=== PATIENT | female | born 1965 | race Caucasian/White ===

== ENCOUNTER 2023-05-23 15:01 | Outpatient (OUT) | payer BC, SELFPAY ==
--- NOTE | 2023-05-23 15:04 | CT_ITS ---
The [address] [address] Patient Name: CHIN MILIAN MRN: [id number] date: 1965 Sex: F Assigned Patient Location: CT Current Patient Location: CT Accession/Order Number: [id number] Exam Date: 05/23/2023 15:14 Report Date: 05/26/2023 06:50 At the request of: SAMIR ALVAREZ Procedure: CT lung screening low-dose EXAM: CT lung screening low-dose HISTORY: Nicotine Dependence F17.210 ; technologist notes state current smoker. COMPARISON: None. TECHNIQUE: Routine low-dose CT lung screen without intravenous contrast. FINDINGS: Cardiovascular: Small amount of fat extending into the interatrial septum. Mild multivessel coronary artery calcifications. Small atheromatous calcification at the aortic valve. Small atheromatous calcification proximal abdominal aorta. A few atheromatous calcifications scattered along the splenic artery. Lungs: Paraseptal and centrilobular emphysema. Moderate irregular biapical pleural parenchymal scarring. Nodules: There are no suspicious masses or nodules. Lymphadenopathy: there are no pathologically enlarged axillary, mediastinal or hilar lymph nodes. Other: The trachea, esophagus and thyroid gland are unremarkable. Upper abdomen: Atheromatous calcification. Osseous: Mild discogenic degenerative changes at several levels along the mid thoracic spine. CT/CT lung screening low-dose IMPRESSION: Paraseptal and centrilobular emphysema with moderate irregular biapical pleural parenchymal scarring. There are no suspicious masses or nodules within the chest or pathologically enlarged lymph nodes. Mild atherosclerotic disease as described in the body the report. Lung rads score 1. A low-dose CT lung screen examination in 12 months is recommended. Electronically authenticated by: LINO DOW Date: 05/26/2023 06:50
== END 2023-05-23 15:02 | disposition home or self-care (01) ==
LOC: CT 15:01
PROVIDERS: PCP Family Medicine; Visit Provider Family Medicine
DX: Z00.00 Encounter for general adult medical examination without abnormal findings (principal); F17.210 Nicotine dependence, cigarettes, uncomplicated
CPT/HCPCS: 71271

== ENCOUNTER 2023-09-08 09:07 | Outpatient (OUT) | payer BC, SELFPAY ==
[2023-09-08 09:41] LABS: Basophils Absolute Auto 0.1 10^3/uL (0.0-0.1); Basophils Percent Auto 0.5 % (0.2-2.0); Eosinophils Absolute Auto 0.1 10^3/uL (0.0-0.7); Eosinophils Percent Auto 0.7 % (0.9-7.0); Hematocrit 39.2 % (36.0-48.0); Hemoglobin 13.2 g/dL (12.0-16.0); Immature Granulocytes Abs Auto 0.03 10^3/uL (0.00-0.03); Immature Granulocytes Pct Auto 0.3 % (0.0-0.5); Lymphocytes Absolute Auto 1.7 10^3/uL (1.2-3.8); Lymphocytes Percent Auto 16.8 % (20.5-60.0); Mean Corpuscular HGB Conc 33.7 g/dL (29.9-35.2); Mean Corpuscular Hemoglobin 30.9 pg (26.7-34.0); Mean Corpuscular Volume 91.8 fL (81.0-99.0); Mean Platelet Volume 8.5 fL (9.5-13.5); Monocytes Absolute Auto 1.1 10^3/uL (0.3-0.8); Monocytes Percent Auto 10.4 % (1.7-12.0); Neutrophils Absolute Auto 7.2 10^3/uL (1.4-6.5); Neutrophils Percent Auto 71.3 % (43.0-75.0); Platelet Count 388 10^3/uL (150-450); Red Blood Count 4.27 10^6/uL (4.20-5.40); Red Cell Distribution Width 13.7 % (11.0-15.0); White Blood Count 10.2 10^3/uL (4.0-11.0)
[2023-09-08 14:37] LABS: Estimated Average Glucose 111 mg/dL; Glycohemoglobin A1C 5.5 % (4.5-6.2)
[2023-09-08 14:41] LABS: Alanine Aminotransferase 24 U/L (14-59); Albumin Globulin Ratio 0.9; Albumin Level 3.6 g/dL (3.4-5.0); Alkaline Phosphatase 67 U/L (46-116); Anion Gap 13.4; Aspartate Amino Transferase 19 U/L (15-37); BUN Creatinine Ratio 11.3; Bilirubin Total 0.6 mg/dL (0.2-1.0); Carbon Dioxide 26.8 mmol/L (21.0-32.0); Chloride 99 mmol/L (98-107); Chol HDL Ratio 2.1; Cholesterol 267 mg/dL (<=200); Estimated GFR (African America >60 (>=60); Estimated GFR (Non-African Ame >60 (>=60); Free T3 2.38 pg/mL (2.18-3.98); Globulin 4.2 g/dL; Glucose 114 mg/dL (74-106); HDL Cholesterol 125 mg/dL (40-60); Potassium 4.2 mmol/L (3.5-5.1); Sodium 135 mmol/L (136-145); Thyroid Stimulating Hormone 1.113 uIU/mL (0.358-3.740); Total Protein 7.8 g/dL (6.4-8.2); Triglycerides 57 mg/dL (<=150); VLDL CHOLESTEROL 11.4 mg/dL
[2023-09-09 12:09] LABS: Insulin 6.2 uIU/mL (2.6-24.9)
== END 2023-09-08 09:08 | disposition home or self-care (01) ==
LOC: LAB 09:08
PROVIDERS: PCP Family Medicine; Visit Provider Family Medicine
DX: Z00.00 Encounter for general adult medical examination without abnormal findings (principal)
CPT/HCPCS: 36415; 80053; 80061; 82306; 83036; 83525; 83540; 84436; 84443; 84481; 85025

== ENCOUNTER 2023-12-08 09:22 | Outpatient (OUT) | payer BC, SELFPAY ==
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
--- OUTSIDE RECORDS SUMMARY | 2023-12-08 09:26 | XMS_ITS | CCD ---
Author Organization [facility] ion [facility] Care Team Providers Care Unit Manager [employer] Name Role Phone MD Samir Alvarez Primary Care Provider [phone] MD Samir Alvarez Attending Provider [phone] ANTONIO, DR DAWSON Primary Care Unavailable HOY, DR DAWSON Admitting Unavailable HOY, DR DAWSON Attending Unavailable HOY, DR DAWSON Consulting Unavailable HOY, DR DAWSON Consulting Unavailable REIDY, DR DAWSON Primary Care Unavailable HOY, DR DAWSON Admitting Unavailable HOY, DR DAWSON Attending Unavailable HOY, DR DAWSON Consulting Unavailable HOY, DR DAWSON Primary Care Unavailable HOY, DR DAWSON Admitting Unavailable HOSeema, DR DAWSON Attending Unavailable CARLA, DR NIKOLAS Vaughn Consulting Unavailable ANTONIO, DR DAWSON Primary Care Unavailable RENE, DR SHELBY Crawford Attending Unavailable RENE, DR SHELBY Crawford Consulting Unavailable RENE, DR SHELBY Crawford Admitting Unavailable ANTONIO, DR DAWSON Attending Unavailable ANTONIO, DR DAWSON Primary Care Unavailable ANTONIO, DR DAWSON Admitting Unavailable ANTONIO, DR DAWSON Primary Care Unavailable ANTONIO, DR DAWSON Admitting Unavailable ANTONIO, DR DAWSON Attending Unavailable NILL, Blaine Crawford Attending Unavailable Samir Alvarez Referring Unavailable Allergies Allergy Classification Reported Allergen(s) Allergy Type Date of Onset Reaction(s) Facility (2 sources) bee venom Drug allergy (disorder) 12-09-2021 [facility] Repository Problems Active Problems Problem Classification Problem Date Documented Da te Episodic/Chronic Other aftercare (1 source) Other prison (current) drug therapy; Translations: [OTH PENITENTIARY CURRENT DRUG THERAPY] Onset: 12-11-2021 Episodic Poisoning by nonmedicinal substances (4 sources) Toxic effect of venom of bees, accidental (unintentional), initial encounter; Translations: [TOXIC EFF VENOM BEES ACC INIT ENC] Onset: 12-09-2021 Episodic Residual codes; unclassified (1 source) Acquired absence of both cervix and uterus; Translations: [ACQUIRED ABSENCE BOTH CERVIX AND UTERUS] Onset: 12-11-2021 Episodic Substance-related disorders (1 source) Nicotine dependence, cigarettes, uncomplicated; Translations: [NICOTINE DEPEND CIGARETTES UNCOMP] Onset: 12-11-2021 Chronic Past or Other Problems Problem Classification Problem Date Documented Date Episodic/Chronic Nonmalignant breast conditions (1 source) Mammographic microcalcification found on diagnostic imaging of breast; Translations: [MAMMOGRAPH MC FOUND DX IMAG BREAST] Onset: 2 Episodic Other screening for suspected conditions (not mental disorders or infectious disease) (4 sources) Other abnormal and inconclusive findings on diagnostic imaging of breast; Translations: [OTH ABN INCONCL FIND DX IMAG BREAST] Onset: 2 Episodic Results Test Name Value Interpretation Reference Range Facility OCC BLD IMMUNO SCREENon 12-12 OCCULT BLOOD Negative Normal NEGATIVE [facility] Comment on above: Performed By: #### O BSCRN #### [facility] [address] [place] [address] Dr. Eve Horvath T4, T3U, FTI LABCORPon 01-08 Free Thyroxine Index 1.8 Normal 1.2-4.9 [facility] Comment on above: Performed By: #### T HYLC #### [facility] [address] [place] [address] Dr. Eve Horvath T3 Uptake 28 % Normal 24-39 [facility] Comment on above: Performed By: #### T HYLC #### [facility] [address] [address] [address] Eve Horvath T4 [Mass/Vol] 6.6 ug/dL Normal 4.5-12.0 [facility] Comment on above: Performed By: #### T HYLC #### [facility] [address] [place] [address] Dr. Eve Horvath CBC AUTO DIFFon 01-07-2022 BASO # 0.1 103/ul Normal 0.0-0.1 [facility] Comment on above: Performed By: #### C BC #### [facility] [address] [address] [address] Eve Horvath Basophils/100 WBC (Bld) 0.9 % Normal 0.2-2.0 [facility] Comment on above: Performed By: #### C BC #### [facility] [address] [address] [address] Eve Horvath EO # 0.1 103/ul Normal 0.0-0.7 [facility] Comment on above: Performed By: #### C BC #### [facility] [address] [address] [address] Eve Horvath Eosinophils/100 WBC (Bld) 1.2 % Normal 0.9-7.0 [facility] Comment on above: Performed By: #### C BC #### [facility] [address] [place] [address] Dr. Eve Horvath Erythrocyte distribution width (RBC) [Ratio] 13.8 % Normal 11.0-15.0 [facility] Comment on above: Performed By: #### C BC #### [facility] [address] [place] [address] Dr. Eve Horvath Hematocrit (Bld) [Volume fraction] 44.3 % Normal 36.0-48.0 [facility] Comment on above: Performed By: #### C BC #### [facility] [address] [place] [address] Dr. Eve Horvath Hemoglobin (Bld) [Mass/Vol] 14.8 g/dL Normal 12.0-16.0 [facility] Comment on above: Performed By: #### C BC #### [facility] [address] [place] [address] Dr. Eve Horvath IG # 0.03 10e3/ul Normal 0.00-0.03 [facility] Comment on above: Performed By: #### C BC #### [facility] [address] [place] [address] Dr. Eve Horvath IG % 0.4 % Normal 0.0-0.5 [facility] Comment on above: Performed By: #### C BC #### [facility] [address] [place] [address] Dr. Eve Horvath LYMPH # 2.5 103/ul Normal 1.2-3.8 [facility] Comment on above: Performed By: #### C BC #### [facility] [address] [place] [address] Dr. Eve Horvath Lymphocytes/100 WBC (Bld) 32.8 % Normal 20.5-60.0 [facility] Comment on above: Performed By: #### C BC #### [facility] [address] [place] [address] Dr. Eve Horvath MANUAL DIFF REQ NO Normal [facility] Comment on above: Performed By: #### C BC #### [facility] [address] [place] [address] Dr. Eve Horvath MCH (RBC) [Entitic mass] 31.0 pg Normal 26.7-34.0 [facility] Comment on above: Performed By: #### C BC #### [facility] [address] [place] [address] Dr. Eve Horvath MCHC (RBC) [Mass/Vol] 33.4 g/dL Normal 29.9-35.2 [facility] Comment on above: Performed By: #### C BC #### [facility] [address] [place] [address] Dr. Eve Horvath MCV (RBC) [Entitic vol] 92.9 fL Normal 81.0-99.0 [facility] Comment on above: Performed By: #### C BC #### [facility] [address] [place] [address] Dr. Eve Horvath MONO # 0.7 103/ul Normal 0.3-0.8 [facility] Comment on above: Performed By: #### C BC #### [facility] [address] [place] [address] Dr. Eve Horvath Monocytes/100 WBC (Bld) 9.9 % Normal 1.7-12.0 [facility] Comment on above: Performed By: #### C BC #### [facility] [address] [place] [address] Dr. Eve Horvath NEUT # 4.1 103/ul Normal 1.4-6.5 [facility] Comment on above: Performed By: #### C BC #### [facility] [address] [address] [address] Eve Horvath Neutrophils/100 WBC (Bld) 54.8 % Normal 43.0-75.0 [facility] Comment on above: Performed By: #### C BC #### [facility] [address] [address] [address] Eve Horvath Platelet mean volume (Bld) [Entitic vol] 8.7 fL Critically low 9.5-13.5 [facility] Comment on above: Performed By: #### C BC #### [facility] [address] [place] [address] Dr. Eve Horvath PLT 463 103/ul Critically high 150-450 [facility] Comment on above: Performed By: #### C BC #### [facility] [address] [place] [address] Dr. Eve Horvath RBC 4.77 106/ul Normal 4.20-5.40 [facility] Comment on above: Performed By: #### C BC #### [facility] [address] [place] [address] Dr. Eve Horvath WBC 7.5 103/ul Normal 4.0-11.0 [facility] Comment on above: Performed By: #### C BC #### [facility] [address] [place] [address] Dr. Eve Horvath GLYCOHEMOGLOBIN A1Con 2021 ADA RECOMMENDATION SEE BELOW Normal [facility] Comment on above: Result Comment: ADA RECOMMENDED LIMIT 4.0 - 6.0 ADA THERAPEUTIC TARGET < 7.0 ACTION SUGGESTED > 7.0 Performed By: #### A 1C #### [facility] [address] [place] [address] Dr. Eve Horvath Glucose [Mass/Vol] 105 mg/dL Normal [facility] Comment on above: Performed By: #### A 1C #### [facility] [address] [address] [address] Eve Horvath HbA1c (Bld) [Mass fraction] 5.3 % Normal 4.5-6.2 [facility] Comment on above: Performed By: #### A 1C #### [facility] [address] [place] [address] Dr. Eve Horvath IRONon 01-07-2022 Iron [Mass/Vol] 105.0 ug/dL Normal 50.0-170.0 [facility] Comment on above: Performed By: #### I VICTORIA #### [facility] [address] [place] [address] Dr. Eve Horvath LIPID PROFILEon 01-07-2022 CHOL-HDL RATIO NORM SEE BELOW Normal [facility] Comment on above: Result Comment: 3.3 - 4.4 LOW RISK 4.4 - 7.1 AVERAGE RISK 7.1 - 11.0 MODERATE RISK >11.0 HIGH RISK Performed By: #### T SH, CMP, LIPID #### [facility] [address] [place] [address] Dr. Eve Horvath Cholesterol [Mass/Vol] 352 mg/dL Critically high <=200 [facility] Comment on above: Performed By: #### T SH, CMP, LIPID #### [facility] [address] [place] [address] Dr. Eve Horvath Cholesterol in HDL [Mass/Vol] 158 mg/dL Critically high 40-60 [facility] Comment on above: Performed By: #### T SH, CMP, LIPID #### [facility] [address] [place] [address] Dr. Eve Horvath Cholesterol in LDL [Mass/Vol] 181.2 mg/dL Normal [facility] Comment on above: Performed By: #### T SH, CMP, LIPID #### [facility] [address] [place] [address] Dr. Eve Horvath Cholesterol.total/Ch olesterol in HDL [Mass ratio] 2.2 {ratio} Normal [facility] Comment on above: Performed By: #### T SH, CMP, LIPID #### [facility] [address] [place] [address] Dr. Eve Horvath HDL NORMAL > or = 60 mg/dl - LO W CARDIOVASCULAR RISK <40 mg/dl - HIGH CARDIOVASCULAR RISK Normal [facility] Comment on above: Performed By: #### T SH, CMP, LIPID #### [facility] [address] [address] [address] Eve Horvath LDL CALC NORMAL SEE BELOW Normal [facility] Comment on above: Result Comment: <100 mg/dl OPTIMAL 100 - 129 mg/dl NEAR OR ABOVE OPTIMAL 130 - 159 mg/dl BORDERLINE HIGH 160 - 189 mg/dl HIGH >190 mg/dl VERY HIGH Performed By: #### T SH, CMP, LIPID #### [facility] [address] [address] [address] Eve Horvath Triglyceride [Mass/Vol] 64 mg/dL Normal <=150 [facility] Comment on above: Performed By: #### T SH, CMP, LIPID #### [facility] [address] [address] [address] Eve Horvath VLDL CALC 12.8 mg/dL Normal [facility] Comment on above: Performed By: #### T SH, CMP, LIPID #### [facility] [address] [address] [address] Eve Horvath PROF 14(COMP METB)on 022 Albumin [Mass/Vol] 4.2 g/dL Normal 3.4-5.0 [facility] Comment on above: Performed By: #### T SH, CMP, LIPID #### [facility] [address] [address] [address] Eve Horvath Albumin/Globulin [Mass ratio] 1.1 {ratio} Normal [facility] Comment on above: Performed By: #### T SH, CMP, LIPID #### [facility] [address] [address] [address] Eve Horvath ALP [Catalytic activity/Vol] 52 U/L Normal 46-116 [facility] Comment on above: Performed By: #### T SH, CMP, LIPID #### [facility] [address] [address] [address] Eve Horvath ALT [Catalytic activity/Vol] 27 U/L Normal 14-59 [facility] Comment on above: Performed By: #### T SH, CMP, LIPID #### [facility] [address] [place] [address] Dr. Eve Horvath Anion gap [Moles/Vol] 13.5 mmol/L Normal [facility] Comment on above: Performed By: #### T SH, CMP, LIPID #### [facility] [address] [place] [address] Dr. Eve Horvath AST [Catalytic activity/Vol] 21 U/L Normal 15-37 [facility] Comment on above: Performed By: #### T SH, CMP, LIPID #### [facility] [address] [place] [address] Dr. Eve Horvath Bilirubin [Mass/Vol] 0.6 mg/dL Normal 0.2-1.0 [facility] Comment on above: Performed By: #### T SH, CMP, LIPID #### [facility] [address] [place] [address] Dr. Eve Horvath Calcium [Mass/Vol] 9.7 mg/dL Normal 8.5-10.1 [facility] Comment on above: Performed By: #### T SH, CMP, LIPID #### [facility] [address] [place] [address] Dr. Eve Horvath Chloride [Moles/Vol] 99 mmol/L Normal 98-107 [facility] Comment on above: Performed By: #### T SH, CMP, LIPID #### [facility] [address] [place] [address] Dr. Eve Horvath CO2 [Moles/Vol] 27.6 mmol/L Normal 21.0-32.0 [facility] Comment on above: Performed By: #### T SH, CMP, LIPID #### [facility] [address] [place] [address] Dr. Eve Horvath Creatinine [Mass/Vol] 0.75 mg/dL Normal 0.55-1.02 [facility] Comment on above: Performed By: #### T SH, CMP, LIPID #### [facility] [address] [place], [place] [id number] Dr. Eve Horvath EGFR-AF TRISTANIAN >60 Normal >=60 [facility] Comment on above: Performed By: #### T SH, CMP, LIPID #### [facility] [address] [address] [address] Eve Horvath EGFR-NON AF TRISTANIAN >60 Normal >=60 [facility] Comment on above: Performed By: #### T SH, CMP, LIPID #### [facility] [address] [place] [address] Dr. Eve Horvath Globulin (S) [Mass/Vol] 3.7 g/dL Normal [facility] Comment on above: Performed By: #### T SH, CMP, LIPID #### [facility] [address] [place] [address] Dr. Eve Horvath Glucose [Mass/Vol] 106 mg/dL Normal 74-106 [facility] Comment on above: Performed By: #### T SH, CMP, LIPID #### [facility] [address] [place] [address] Dr. Eve Horvath Potassium [Moles/Vol] 4.1 mmol/L Normal 3.5-5.1 [facility] Comment on above: Performed By: #### T SH, CMP, LIPID #### [facility] [address] [place] [address] Dr. Eve Horvath Protein [Mass/Vol] 7.9 g/dL Normal 6.4-8.2 [facility] Comment on above: Performed By: #### T SH, CMP, LIPID #### [facility] [address] [place] [address] Dr. Eve Horvath Sodium [Moles/Vol] 136 mmol/L Normal 136-145 [facility] Comment on above: Performed By: #### T SH, CMP, LIPID #### [facility] [address] [place] [address] Dr. Eve Horvath Urea nitrogen [Mass/Vol] 13.0 mg/dL Normal 7.0-18.0 [facility] Comment on above: Performed By: #### T SH, CMP, LIPID #### [facility] [address] [place], [place] [address] Dr. Eve Horvath Urea nitrogen/Creatinine [Mass ratio] 17.3 mg/mg Normal [facility] Comment on above: Performed By: #### T SH, CMP, LIPID #### [facility] [address] [place], [place] [address] Dr. Eve Horvath TSHon 01-07-2022 TSH 1.924 uIU/mL Normal 0.358-3.740 [facility] Comment on above: Performed By: #### T SH, CMP, LIPID #### [facility] [address] [place], [place] [address] Dr. Eve Horvath MAMMO CONSULT OUTSIDE FILMSo n 08-17-2021 MAMMO CONSULT OUTSIDE FILMS Patient Name: CHIN MILIAN STUDY: MAMMO CONSULT OUTSIDE FILMS; 08/17/2021 2:46 pm ACCESSION NUMBER(S): [id number] ORDERING CLINICIAN: SAMIR ALVAREZ INDICATION: Recommendation for second-look ultrasound and biopsy of a right breast focus. A second opinion has been requested for outside breast MRI 08/09/2021. The reports from these studies are available for review. This consultation was deemed medically necessary by the referring health care provider, Dr. Ana Mccray. COMPARISON: Mammograms 03/13/2021 are available for correlation. FINDINGS: MRI findings: There is extreme fibroglandular tissue. There is mild background enhancement. Nipple markers are presumably present. The 4 mm focus of interest in the right breast 12 o'clock position middle depth is presumably seen on slice 137. This demonstrates increased T2 signal intensity. This is similar in appearance to additional foci noted bilaterally and is probably benign. No suspicious mass or non mass enhancement is identified in either breast. Evaluation of the axillary regions is limited due to field of view limitations. No lymphadenopathy is evident within these limitations. IMPRESSION: 1. Probably benign right breast focus at 12:00 o'clock. A six-month follow-up fast MRI is recommended. 2. No MRI evidence of malignancy in the left breast. I disagree with the outside reports. BI-RADS CATEGORY: Category: 3 - Probably Benign. Recommendation: 6 Month Follow-up. Electronically signed by: JOSE BURGOS MD Normal [facility] [place] breast BI wo/w con CADon 08-10-2021 MR breast BI wo/w con CAD [facility] [place] [address] [place] [address] MRI Report Signed Patient: Chin Milian MR#: [id number] : 1965 Acct:[id number] Age/Sex: 55 / F ADM Date: 08/09/21 Loc: MR Room: Type: [facility] Attending Dr: Samir Alvarez MD Ordering Provider: Samir Alvarez MD Date of Service: 08/09/21 MR/MR breast BI wo/w con CAD: ABNORMAL MAMMGRA Copies to: Samir Alvarez MD BILATERAL BREAST MRI WITHOUT AND WITH INTRAVENOUS CONTRAST CLINICAL HISTORY: Dense breast tissue. History of breast cancer in the patient's mother and sister. COMPARISON: Diagnostic mammogram from [facility] 05/30/2021. TECHNIQUE: Multisequence, multiplanar images of the breasts were performed before and after the use of IV contrast All imaged data was reviewed using the [employer] system. The postcontrast images were subtracted and CAD mapping of the enhancement kinetics was performed. Kinetic curves were generated. 2D and 3D MIP images were also reviewed. FINDINGS: The breasts are composed of extremely dense fibroglandular tissue with mild background parenchymal enhancement. Scattered nonspecific foci are seen within both breasts relatively symmetrical to one another. No suspicious masslike or nonmasslike enhancement is seen within the left breast. A foci of enhancement is seen involving the approximately 12:00 position of the right breast, middle depth measuring approximately 4 mm in the AP, 4 mm in the transverse and 4 mm in the craniocaudal dimensions which may have subtle spiculations. This has mixed postcontrast enhancement kinetics. No chest wall abnormality is noted. No suspicious intramammary or axillary lymph nodes. FINAL ASSESSMENT/ BI-RAD: 1. No MRI evidence of malignancy within the left breast. 2.A foci of enhancement is seen involving the approximately 12:00 position of the right breast, middle depth measuring approximately 4 mm in the AP, 4 mm in the transverse and 4 mm in the craniocaudal dimensions which may have subtle spiculations. Second look ultrasound could be performed, however it is doubtful that a correlate abnormality will be found given its small size and the patient's dense breast tissue. Therefore, MRI guided biopsy is recommended. If biopsy is not performed, repeat MRI in 6 months is recommended. Suspicious abnormality RESULT CODE: 4a DENSITY CODE: 4 FOLLOW UP: Biopsy. Impression dictated by: Carlos Weaver Jr., D.OMiky08/10/2021 9:42 AM Transcribed By: 08/10/21 1130 Dictated By: Carlos Weaver Jr DO 08/10/21 0942 Signed By: 08/10/[address] [facility] MG MAMM DIAGNOSTIC 3D HANS CA Don 05-30-2021 MG MAMM DIAGNOSTIC 3D HANS CAD Patient: CHIN MILIAN Exam Date: 05/30/2021 : 1965 Gender:F Ordering : DR SAMIR ALVAREZ . Admission #: [id number] Family : Order #: [id number] CLICK HERE TO VIEW EXAM CORRECTION: deleted in 12 months in recommendations Corrected on: 05/31/2021; RADIOLOGY REPORT PROCEDURE: MAMMOGRAM DIAGNOSTIC 3D BILATERAL CAD COMPARISON: MG MAMM DIAGNOSTIC 3D HANS CAD, 09/12/2020. INDICATIONS: Mammography abnormal Calculator Name NCI Breast Cancer Risk Assessment Tool 5 Year Breast Cancer Risk 0.90% Lifetime Breast Cancer Risk 7.00% Personal Breast Cancer No Personal Ovarian Cancer No Treatments None Family Cancers Mother with cervical cancer at age 50; Sister with cervical cancer at age 50. LOCATION: [facility] BREAST COMPOSITION: Extremely dense, which lowers the sensitivity of mammography. FINDINGS: DIAGNOSTIC CATEGORY 0--INCOMPLETE: NEED ADDITIONAL IMAGING EVALUATION. Scattered benign-appearing nodules are present. Scattered benign-appearing calcifications are present. RIGHT BREAST: No significant suspicious finding. LEFT BREAST: Vague geographic microcalcifications in the upper outer quadrant with associated focal asymmetry, grossly stable from the prior exam. Follow-up MRI is recommended. RECOMMENDATIONS: FOLLOW-UP BREAST MRI BILATERAL BREASTS PLEASE NOTE: A NORMAL MAMMOGRAM DOES NOT EXCLUDE THE POSSIBILITY OF BREAST CANCER. A CLINICALLY SUSPICIOUS PALPABLE LUMP SHOULD BE BIOPSIED. Dictated by: Nikolas Irving MD on 05/30/2021 at 14:41 Approved by: Nikolas Irving MD on 05/30/2021 at 14:58 Dictated by: Nikolas Irving MD on 05/31/2021 at 08:42 Approved by: Nikolas Irving MD on 05/31/2021 at 08:42 Normal [facility] Encounters Encounter Date Encounter Type Care Provider Facility Start: 12-30-2023 ambulatory Blaine KAPLAN Facility :[facility] Start: 11-24-2023 ambulatory Blaine KAPLAN Facility:[facility] [place] Start: 04-10-[address] SAMIR ALVAREZ Facility :[facility] Start: 01-09-2022 Encounter for genera l adult medical examination without abnormal findings DR SAMIR ALVAREZ [facility] Start: 01-08-2022 End: 01-08-[address] SAMIR ALVAREZ Facility:[facility] Start: 01-08-2022 End: 01-08-2022 Encounter for general adult medical examination without abnormal findings DR SAMIR ALVAREZ Facility:[facility] Start: 01-07-2022 End: 01-08-[address] SAMIR ALVAREZ Facility:[facility] Start: 12-16-[address] SAMIR ALVAREZ Facility :[facility] Start: 12-09-2021 End: 12-09-[address] SAMIR ALVAREZ Facility:[facility] Start: 08-09-2021 End: 08-09-2021 Patient encounter procedure MD Samir Alvarez Work Phone: [facility] [place] Start: 07-10-2021 End: 07-10-2021 Patient encounter procedure MD Samir Alvarez Work Phone: [facility] [place] Start: 05-30-2021 End: 05-31-[address] SAMIR ALVAREZ Facility:[facility] Plan of Treatment Date Care Activity Detail Author Start: 08-09-2021 MRI of bilateral jose asts with contrast MR breast BI wo/w con [facility] Start: 07-10-2021 MRI of bilateral jose asts with contrast MR breast BI wo/w con [facility] Payers Date Payer Category Payer Unknown [id number] 2.16.84 [id number] 1965 Unknown [id number] 2.16.84 [id number] 1965 Unknown [id number] 2.16.84 [id number] 1965 Unknown [id number] 2.16.84 [id number] 1965 Unknown [id number] 2.16.84 [id number] 1965 Unknown [id number] 2.16.84 [id number] 1965 Unknown [id number] 2.16.8 [id number] 1957 Self-pay [id number] 1957 Unknown [id number] Social History Date Type Detail Facility Tobacco smoking stat [facility] Unknown if ever smoked [facility] Work Phone: Start: 1965 Sex Assigned At Female F [facility] Evaluation note Note Date & Type Note Facility Evaluation note No assessment information availa ble [facility] Work Phone: Chief Complaint and Reason for Visit Chief Complaint abnormal mamm Chief Complaint abnormal mamm abnormal mamm Advance Directives No Advanced Directives Records Found Advance Directive Response Recorded Date/ Time Advance Directives No June 2:36pm Advance Directive Response Recorded Date/ Time Advance Directives No June 3:36pm Summary Purpose Family History No Family History Records FoundNo Family History Records FoundNo Family History Records FoundNo Family History Records Found Additional Source Comments Care Teams (unrecognized sec tion and content) Team Status: Inactive Member Role Status Dates Samir Alvarez MD Primary Care Provider, Attending Pr ollie Active Team Status: Active Member Role Status Dates Samir Alvarez MD Primary Care Provider Active Goals (unrecognized section and content) Goals may be documented in a n alternate sectionGoals may be documented in an alternate section INFORMATION SOURCE (unrecogn ized section and content) DATE CREATED AUTHOR 08/24/2021 [facility] DATE CREATED AUTHOR AUTHOR'S ORGANIZ ATION 10/27/2021 [facility] DATE CREATED AUTHOR AUTHOR'S ORGANIZ ATION 01/09/2022 [facility] DATE CREATED AUTHOR AUTHOR'S ORGANIZ ATION 11/28/2023 [facility] FOR RECORDS PERTAINING TO PATIENTS WHO ARE OR HAVE BEEN ENROLLED IN A CHEMICAL DEPENDENCY/SUBSTANCEABUSE PROGRAM, SOME INFORMATION MAY BE OMITTED. This clinical summary was aggregated from multiple sources. Caution should be exercised in using it in the provision of clinical care. This summary normalizes information from multiple sources, and as a consequence, information in this document may materially change the coding, format and clinical context of patient data. In addition, data may be omitted in some cases. CLINICAL DECISIONS SHOULD BE BASED ON THE PRIMARY CLINICAL RECORDS. [employer] provides no warranty or guarantee of the accuracy or completeness of information in this document.
--- NOTE | 2023-12-08 09:27 | VEIN_ITS ---
[address] [address] Patient Name: CHIN MILIAN MRN: [id number] date: 1965 Sex: F Assigned Patient Location: Current Patient Location: Accession/Order Number: [id number] Exam Date: 12/08/2023 09:26 Report Date: 12/09/2023 15:10 At the request of: SAMIR ALVAREZ Procedure: VC US AAA DX EXAM: VC US AAA DX HISTORY: R19.8 Pulsatile abdomen COMPARISON: None. TECHNIQUE: Grayscale, color and Doppler FINDINGS: Proximal aorta: 1.9 x 1.9 cm Mid aorta: 1.8 x 1.9 cm Distal aorta: 1.9 x 1.9 cm Right common iliac artery: 0.9 x 1.0 cm Left common iliac artery: 0.9 x 0.8 cm Normal color and Doppler flow. Mild atherosclerotic plaque VEIN/VC US AAA DX IMPRESSION: No abdominal aortic aneurysm Electronically authenticated by: NIKOLAS AGURIRE Date: 12/09/2023 15:10
--- NOTE | 2023-12-08 09:27 | VEIN_ITS ---
Patient Name: CHIN MILIAN MR#: [id number] : 1965 Exam Date: 12/08/2023 Ordering Doctor: DR SAMIR ALVAREZ . RADIOLOGY REPORT PROCEDURE: VC EXT VENOUS REFLUX HANS LMTD COMPARISON: None. INDICATIONS: I83.813 Bilateral painful varicose veins TECHNIQUE: Duplex imaging of the lower extremity to assess the deep and superficial venous system for the presence of deep or superficial venous incompetence and to document the location and severity of disease. The study includes evaluation of the great saphenous vein (GSV), anterior accessory saphenous vein (AASV) and small saphenous vein (SSV). Patient scanned in reverse Trendelenburg and standing. FINDINGS: RIGHT LOWER EXTREMITY: Saphenofemoral Junction Reflux: Yes 6.9mm 1.0 sec GSV: Diam (mm) Reflux/ Time (sec) Proximal Thigh 3.0 Yes 1.3 Mid Thigh 1.9 Yes 0.7 Distal Thigh 1.8 No Prox Calf 2.1 Yes 0.8 Mid Calf 1.2 Yes 0.6 Saphenopopliteal Junction Reflux: 3.3mm Yes 4.8 SSV: Proximal Calf 2.2 No Mid Calf 2.1 Yes 0.4 AASV: Proximal Thigh 1.5 Yes 1.5 Mid Thigh 1.6 Yes 1.3 Distal Thigh Thrombi: Chronic thrombus noted in Proximal GSV and SSV. Compressibility: Partial and non compression of GSV and SSV. Flow: Mild deep venous reflux. Preforator: Proximal medial lower leg 3.2 mm with 1.3s reflux. Tech Note: Incompetent varicose vein popliteal fossa measures 3.0 mm with 4.7s reflux. Varicose vein off of posterior accessory saphenous vein measures 4.8 mm with 0.6s reflux. LEFT LOWER EXTREMITY: Saphenofemoral Junction Reflux: Yes 6.0 mm 0.7 sec GSV: Diam (mm) Reflux/Time (sec) Proximal Thigh 2.2 No Mid Thigh 1.7 Yes 0.8 Distal Thigh 1.4 Yes 0.5 Prox Calf 1.2 Yes 0.5 Mid Calf 0.9 Yes 0.5 Saphenopopliteal Junction Relux: 5.9 mm Yes 4.4 SSV: Proximal Calf 3.7 No Mid Calf 1.7 No AASV: Proximal Thigh 2.7 Yes 0.4 Mid Thigh 2.1 Yes 3.2 Distal Thigh Thrombi: Chronic thrombus in SSV. Compressibility: Non compression of SSV. Flow: Mild reflux in CFV. [employer] Kettle Tender: Mid posterior calf 3.6 mm with 1.0s reflux. Tech Note: Incompetent varicose vein mid posterior calf measures 1.7 mm with 0.5s reflux. CONCLUSION: 1. Scattered areas of mild reflux, but no abnormal dilation of the superficial veins bilaterally. Dictated by: Marquis Buckley M.D. on 12/08/2023 at 11:18 Approved by: Marquis Buckley M.D. on 12/08/2023 at 11:37
--- NOTE | 2023-12-08 09:27 | VEIN_ITS ---
Patient Name: CHIN MILIAN MR#: [id number] : 1965 Exam Date: 12/08/2023 Ordering Doctor: DR Prasad Moreno . RADIOLOGY REPORT PROCEDURE: VC ARTERIAL SCAN HANS COMPARISON: None. INDICATIONS: R22.33 Pulsatile mass of both upper extremities TECHNIQUE: Color duplex Doppler ultrasound evaluation analysis was performed in the usual manner. FINDINGS: Right arm: Normal triphasic waveforms throughout. No significant flow stenosis, occlusion or aneurysm Flow velocities PSV cm/s: Subclavian: 81 Axillary: 67 Brachial: 61-69 Radial: 48-53 Ulnar: 34-37 Left arm: Normal triphasic waveforms throughout. No significant flow stenosis, occlusion or aneurysm Flow velocities PSV cm/s: Subclavian: 90 Axillary: 51 Brachial: 52-66 Radial: 55-60 Ulnar: 52 CONCLUSION: No flow significant stenosis, occlusion or aneurysm observed in the arms Dictated by: Rubén Irving MD on 12/10/2023 at 11:44 Approved by: Rubén Irving MD on 12/10/2023 at 11:47
--- NOTE | 2023-12-08 09:27 | VEIN_ITS ---
Patient Name: CHIN MILIAN MR#: [id number] : 1965 Exam Date: 12/08/2023 Ordering Doctor: DR Prasad Moreno . RADIOLOGY REPORT PROCEDURE: VC FACILITY EST [facility] - OFFICE VISIT INITIAL COMPARISON: None. PROGRESS NOTES: [age] year old female who presents with a 10 year history of bilateral leg pain, aching, burning. The patient's right leg symptoms are worse than the left. There has been a progression of symptoms over time. This increases with prolonged standing. The patient describes an improvement with compression stockings, leg elevation, and ibuprofen. The patient denies any signs and symptoms to suggest arterial ischemia. The patient describes a family history varicose veins on maternal side. The patient has drinking and smoking history of (unknown). Patient has a past medical history significant for renal disease, varicose veins, prior dialysis. The patient denies a history of deep venous thrombus or pulmonary embolus. See separate history and physical for medication list. No prior treatment for varicose or spider veins. Current use of compression stockings. After review of nurse notes, history and physical exam I discussed at length the pathophysiology of venous hypertension and possible treatments, therapies and strategies available. We discussed at length the importance of elevating the lower extremities above the level of the heart, increased physical activity and compression stocking use. Ultrasound venous reflux study performed today was discussed at length with the patient. The report demonstrates mild reflux bilaterally, but no abnormally dilated superficial veins. PHYSICAL EXAM: The right leg demonstrates a few varicosities, multiple spider veins, no ulceration, no edema, no skin discoloration. The left leg demonstrates a few varicosities, multiple spider veins, no ulceration, no edema, no skin discoloration. Both thighs, legs and feet were symmetrically warm to the touch. Good posterior tibial and dorsalis pedis pulses were present bilaterally. VEIN/VC Facility EST Comprehensive IMPRESSION: 1. Mild venous insufficiency 2. A few scattered lower extremity varicose veins 3. No lower extremity subcutaneous edema 4. No flow significant arterial disease 5. CEAP: C2, EC, , ID PLAN: 1. Continued use of compression stockings 2. Elevated legs and increased physical activity symptomatic relief 3. Patient does not meet criteria for endovenous laser ablation 4. Patient does not desire treatment of spider veins/reticular veins at this time. 5. Followup in future as needed. Nurse notes, history and physical were reviewed and confirmed, see attached forms. The nurse was present throughout the physical exam and consultation Dictated by: Marquis Buckley M.D. on 12/08/2023 at 11:40 Approved by: Marquis Buckley M.D. on 12/08/2023 at 11:49
[2023-12-08 10:41] VITALS: BMI 18.2
== END 2023-12-08 09:23 | disposition home or self-care (01) ==
LOC: VC 09:22
PROVIDERS: PCP Family Medicine; Visit Provider Radiology Diagnostic Radiology
DX: I83.813 Varicose veins of bilateral lower extremities with pain (principal); I86.8 Varicose veins of other specified sites; R19.8 Other specified symptoms and signs involving the digestive system and abdomen; R22.33 Localized swelling, mass and lump, upper limb, bilateral
CPT/HCPCS: 76775; 93925; 93970; G0463

== ENCOUNTER 2024-04-05 12:22 | Emergency (ER) | payer BC, SELFPAY ==
[2024-04-05 12:46] VITALS: BP 158/105; PULSE 88; O2SAT 99; BMI 16.3
--- OUTSIDE RECORDS SUMMARY | 2024-04-05 13:06 | XMS_ITS | CCD ---
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 Role Phone MD Samir Alvarez Primary Care Provider [phone] MD Samir Alvarez Attending Provider ANTONIO, DR DAWSON Primary Care Unavailable HOY, DR DAWSON Admitting Unavailable HOY, DR DAWSON Attending Unavailable HOY, DR DAWSON Consulting Unavailable HOY, DR DAWSON Consulting Unavailable REIDY, DR DAWSON Primary Care Unavailable HOY, DR DAWSON Admitting Unavailable HOY, DR DAWSON Attending Unavailable HOY, DR DAWSON Consulting Unavailable HOY, DR DAWSON Primary Care Unavailable HOY, DR DAWSON Admitting Unavailable HOY, DR DAWSON Attending Unavailable WEST, DR NIKOLAS Vaughn Consulting Unavailable ANTONIO, DR DAWSON Primary Care Unavailable RENE, DR SHELBY Crawford Attending Unavailable RENE, DR SHELBY Crawford Consulting Unavailable RENE, DR SHELBY Crawford Admitting Unavailable HOY, DR DAWSON Attending Unavailable REIDY, DR DAWSON Primary Care Unavailable HOSeema, DR DAWSON Admitting Unavailable ANTONIO, DR DAWSON Primary Care Unavailable ANTONIO, DR DAWSON Admitting Unavailable ANTONIO, DR DAWSON Attending Unavailable Samir Alvarez Primary Care Physician [phone] Blaine KAPLAN Attending Unavailable Samir Alvarez Referring Unavailable Allergies Allergy Classification Reported Allergen(s) Allergy Type Date of Onset Reaction(s) Facility (2 sources) bee venom Drug allergy (disorder) 2 [facility] (2 sources) Bee/Wasp/Ant venom; Translations: [Bee Stings] Allergy to substance Anaphylaxis (disorder) [facility] (1 source) No Known Medication Allergies; Translations: [No Known Medication Allergies] Propensity to adverse reactions (disorder) [facility] Rep[facility] NEGATED: Highlighted row has been ruled out! (1 source) Drug allergy [facility] Medications Completed/Discontinued Medications Medication Drug Class(es) Dates Sig (Normalized) Sig (Original) EPINEPHrine (1 source) alpha-Adrenergic Agonist, beta-Adrenergic Agonist, Catecholamine Start: 11-27-2023 epinephrine 0.3 mg Inj kit 0.3 mg, SubCutaneous, As Directed, 0 Refill(s), Refills(s) 0 Start Date: 11/27/23 Status: Ordered ibuprofen 800 mg oral tablet (1 source) Nonsteroidal Anti-inflammatory Drug Start: 11-27-2023 ibuprofen 800 mg Tab 800 mg = 1 tab(s), Oral, QID, PRN as needed for pain, 0 Refill(s), Refills(s) 0 Start Date: 11/27/23 Status: Ordered Problems Active Problems Problem Classification Problem Date Documented Da te Episodic/Chronic Anxiety disorders (1 source) Anxiety 11-27-2023 Chronic Cancer of cervix (1 source) History of malignant neoplasm of cervix 11-27-2023 Episodic Other aftercare (1 source) 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; Translations: [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 THERAPY] Onset: 12-11-2021 Episodic Other diseases of kidney and ureters (1 source) Cyst of kidney 11-27-2023 Episodic Other nutritional; endocrine; and metabolic disorders (1 source) Underweight 11-27-2023 Episodic Poisoning by nonmedicinal substances (4 sources) [...] [NICOTINE DEPEND CIGARETTES UNCOMP] Onset: 12-11-2021 Chronic Varicose veins of lower extremity (1 source) Varicose veins of lower extremity 11-27-2023 Episodic Past or Other Problems Problem Classification Problem Date Documented Date Episodic/Chronic Nonmalignant breast conditions (1 source) Mammographic microcalcification found on diagnostic imaging of breast; Translations: [MAMMOGRAPH MC FOUND DX IMAG BREAST] Onset: Episodic Other screening for suspected conditions (not mental disorders or infectious disease) (4 sources) Other abnormal and inconclusive findings on diagnostic imaging of breast; Translations: [OTH ABN INCONCL FIND DX IMAG BREAST] Onset: 2 Episodic Results Test Name Value Interpretation Reference Range Facility OCC BLD IMMUNO SCREENon 12-12 OCCULT BLOOD Negative Normal NEGATIVE [facility] Comment on above: Performed By: #### O BSCRN #### [facility] [address] [place] [address] Dr. Eve Horvath T4, T3U, FTI LABCORPon 01-08 Free Thyroxine Index 1.8 Normal 1.2-4.9 [facility] Comment on above: Performed By: #### T HYLC #### [facility] [address] [place] [address] Dr. Eve Horvath T3 Uptake 28 % Normal 24-39 [facility] Comment on above: Performed By: #### T HYLC #### [facility] [address] [place] [address] Dr. Eve Horvath T4 [Mass/Vol] 6.6 ug/dL Normal 4.5-12.0 [facility] Comment on above: Performed By: #### T HYLC #### [facility] [address] [place] [address] Dr. Eve Horvath CBC AUTO DIFFon 01-07-2022 BASO # 0.1 103/ul Normal 0.0-0.1 [facility] Comment on above: Performed By: #### C BC #### [facility] [address] [place] [address] Dr. Eve Horvath Basophils/100 WBC (Bld) 0.9 % Normal 0.2-2.0 [facility] Comment on above: Performed By: #### C BC #### [facility] [address] [place] [address] Dr. Eve Horvath EO # 0.1 103/ul Normal 0.0-0.7 [facility] Comment on above: Performed By: #### C BC #### [facility] [address] [place] [address] Dr. Eve Horvath Eosinophils/100 WBC (Bld) 1.2 % Normal 0.9-7.0 [facility] Comment on above: Performed By: #### C BC #### [facility] [address] [place] [address] Dr. Eve Horvath Erythrocyte distribution width (RBC) [Ratio] 13.8 % Normal 11.0-15.0 [facility] Comment on above: Performed By: #### C BC #### [facility] [address] [place] [address] Dr. Eve Horvath Hematocrit (Bld) [Volume fraction] 44.3 % Normal 36.0-48.0 [facility] Comment on above: Performed By: #### C BC #### [facility] [address] [place] [address] Dr. Eve Horvath Hemoglobin (Bld) [Mass/Vol] 14.8 g/dL Normal 12.0-16.0 [facility] Comment on above: Performed By: #### C BC #### [facility] [address] [place] [address] Dr. Eve Horvath IG # 0.03 10e3/ul Normal 0.00-0.03 [facility] Comment on above: Performed By: #### C BC #### [facility] [address] [place] [address] Dr. Eve Horvath IG % 0.4 % Normal 0.0-0.5 [facility] Comment on above: Performed By: #### C BC #### [facility] [address] [place] [address] Dr. Eve Horvath LYMPH # 2.5 103/ul Normal 1.2-3.8 [facility] Comment on above: Performed By: #### C BC #### [facility] [address] [place] [address] Dr. Eve Horvath Lymphocytes/100 WBC (Bld) 32.8 % Normal 20.5-60.0 [facility] Comment on above: Performed By: #### C BC #### [facility] [address] [place] [address] Dr. Eve Horvath MANUAL DIFF REQ NO Normal [facility] Comment on above: Performed By: #### C BC #### [facility] [address] [address] [address] Eve Horvath MCH (RBC) [Entitic mass] 31.0 pg Normal 26.7-34.0 [facility] Comment on above: Performed By: #### C BC #### [facility] [address] [place] [address] Dr. Eve Horvath MCHC (RBC) [Mass/Vol] 33.4 g/dL Normal 29.9-35.2 [facility] Comment on above: Performed By: #### C BC #### [facility] [address] [place] [address] Dr. Eve Horvath MCV (RBC) [Entitic vol] 92.9 fL Normal 81.0-99.0 [facility] Comment on above: Performed By: #### C BC #### [facility] [address] [place] [address] Dr. Eve Horvath MONO # 0.7 103/ul Normal 0.3-0.8 [facility] Comment on above: Performed By: #### C BC #### [facility] [address] [place] [address] Dr. Eve Horvath Monocytes/100 WBC (Bld) 9.9 % Normal 1.7-12.0 [facility] Comment on above: Performed By: #### C BC #### [facility] [address] [place] [address] Dr. Eve Horvath NEUT # 4.1 103/ul Normal 1.4-6.5 [facility] Comment on above: Performed By: #### C BC #### [facility] [address] [place] [address] Dr. Eve Horvath Neutrophils/100 WBC (Bld) 54.8 % Normal 43.0-75.0 [facility] Comment on above: Performed By: #### C BC #### [facility] [address] [place] [address] Dr. Eve Horvath Platelet mean volume (Bld) [Entitic vol] 8.7 fL Critically low 9.5-13.5 [facility] Comment on above: Performed By: #### C BC #### [facility] [address] [address] [address] Eve Horvath PLT 463 103/ul Critically high 150-450 [facility] Comment on above: Performed By: #### C BC #### [facility] [address] [address] [address] Eve Horvath RBC 4.77 106/ul Normal 4.20-5.40 [facility] Comment on above: Performed By: #### C BC #### [facility] [address] [address] [address] Eve Horvath WBC 7.5 103/ul Normal 4.0-11.0 [facility] Comment on above: Performed By: #### C BC #### [facility] [address] [address] [address] Eve Horvath GLYCOHEMOGLOBIN A1Con 2021 ADA RECOMMENDATION SEE BELOW Normal [facility] Comment on above: Result Comment: ADA RECOMMENDED LIMIT 4.0 - 6.0 ADA THERAPEUTIC TARGET < 7.0 ACTION SUGGESTED > 7.0 Performed By: #### A 1C #### [facility] [address] [address] [address] Eve Horvath Glucose [Mass/Vol] 105 mg/dL Normal [facility] Comment on above: Performed By: #### A 1C #### [facility] [address] [address] [address] Eve Horvath HbA1c (Bld) [Mass fraction] 5.3 % Normal 4.5-6.2 [facility] Comment on above: Performed By: #### A 1C #### [facility] [address] [address] [address] Eve Horvath IRONon 01-07-2022 Iron [Mass/Vol] 105.0 ug/dL Normal 50.0-170.0 [facility] Comment on above: Performed By: #### I VICTORIA #### [facility] [address] [address] [address] Eve Horvath LIPID PROFILEon 01-07-2022 CHOL-HDL RATIO NORM SEE BELOW Normal [facility] Comment on above: Result Comment: 3.3 - 4.4 LOW RISK 4.4 - 7.1 AVERAGE RISK 7.1 - 11.0 MODERATE RISK >11.0 HIGH RISK Performed By: #### T SH, CMP, LIPID #### [facility] [address] [address] [address] Eve Horvath Cholesterol [Mass/Vol] 352 mg/dL Critically high <=200 [facility] Comment on above: Performed By: #### T SH, CMP, LIPID #### [facility] [address] [address] [address] Eve Horvath Cholesterol in HDL [Mass/Vol] 158 mg/dL Critically high 40-60 [facility] Comment on above: Performed By: #### T SH, CMP, LIPID #### [facility] [address] [address] [address] Eve Horvath Cholesterol in LDL [Mass/Vol] 181.2 mg/dL Normal [facility] Comment on above: Performed By: #### T SH, CMP, LIPID #### [facility] [address] [address] [address] Eve Horvath Cholesterol.total/Ch olesterol in HDL [Mass ratio] 2.2 {ratio} Normal [facility] Comment on above: Performed By: #### T SH, CMP, LIPID #### [facility] [address] [address] [address] Eve Horvath HDL NORMAL > or = 60 mg/dl - LO W CARDIOVASCULAR RISK <40 mg/dl - HIGH CARDIOVASCULAR RISK Normal [facility] Comment on above: Performed By: #### T SH, CMP, LIPID #### [facility] [address] [address] [address] Eve Horvath LDL CALC NORMAL SEE BELOW Normal [facility] Comment on above: Result Comment: <100 mg/dl OPTIMAL 100 - 129 mg/dl NEAR OR ABOVE OPTIMAL 130 - 159 mg/dl BORDERLINE HIGH 160 - 189 mg/dl HIGH >190 mg/dl VERY HIGH Performed By: #### T SH, CMP, LIPID #### [facility] [address] [address] [address] Eve Horvath Triglyceride [Mass/Vol] 64 mg/dL Normal <=150 [facility] Comment on above: Performed By: #### T SH, CMP, LIPID #### [facility] [address] [place] [address] Dr. Eve Horvath VLDL CALC 12.8 mg/dL Normal [facility] Comment on above: Performed By: #### T SH, CMP, LIPID #### [facility] [address] [address] [address] Eve Horvath PROF 14(COMP METB)on 022 Albumin [Mass/Vol] 4.2 g/dL Normal 3.4-5.0 [facility] Comment on above: Performed By: #### T SH, CMP, LIPID #### [facility] [address] [place] [address] Dr. Eve Horvath Albumin/Globulin [Mass ratio] 1.1 {ratio} Normal [facility] Comment on above: Performed By: #### T SH, CMP, LIPID #### [facility] [address] [place] [address] Dr. Eve Horvath ALP [Catalytic activity/Vol] 52 U/L Normal 46-116 [facility] Comment on above: Performed By: #### T SH, CMP, LIPID #### [facility] [address] [place] [address] Dr. Eve Horvath ALT [Catalytic activity/Vol] 27 U/L Normal 14-59 [facility] Comment on above: Performed By: #### T SH, CMP, LIPID #### [facility] [address] [place] [address] Dr. Eve Horvath Anion gap [Moles/Vol] 13.5 mmol/L Normal [facility] Comment on above: Performed By: #### T SH, CMP, LIPID #### [facility] [address] [place] [address] Dr. Eve Horvath AST [Catalytic activity/Vol] 21 U/L Normal 15-37 [facility] Comment on above: Performed By: #### T SH, CMP, LIPID #### [facility] [address] [address] [address] Eve Horvath Bilirubin [Mass/Vol] 0.6 mg/dL Normal 0.2-1.0 [facility] Comment on above: Performed By: #### T SH, CMP, LIPID #### [facility] [address] [address] [address] Eve Horvath Calcium [Mass/Vol] 9.7 mg/dL Normal 8.5-10.1 [facility] Comment on above: Performed By: #### T SH, CMP, LIPID #### [facility] [address] [address] [address] Eve Horvath Chloride [Moles/Vol] 99 mmol/L Normal 98-107 [facility] Comment on above: Performed By: #### T SH, CMP, LIPID #### [facility] [address] [place] [address] Dr. Eve Horvath CO2 [Moles/Vol] 27.6 mmol/L Normal 21.0-32.0 [facility] Comment on above: Performed By: #### T SH, CMP, LIPID #### [facility] [address] [place] [address] Dr. Eve Horvath Creatinine [Mass/Vol] 0.75 mg/dL Normal 0.55-1.02 [facility] Comment on above: Performed By: #### T SH, CMP, LIPID #### [facility] [address] [place] [address] Dr. Eve Horvath EGFR-AF CROATIAN >60 Normal >=60 [facility] Comment on above: Performed By: #### T SH, CMP, LIPID #### [facility] [address] [place] [address] Dr. vEe Horvath EGFR-NON AF CROATIAN >60 Normal >=60 [facility] Comment on above: Performed By: #### T SH, CMP, LIPID #### [facility] [address] [place] [address] Dr. Eve Horvath Globulin (S) [Mass/Vol] 3.7 g/dL Normal [facility] Comment on above: Performed By: #### T SH, CMP, LIPID #### [facility] [address] [address] [address] Eve Horvath Glucose [Mass/Vol] 106 mg/dL Normal 74-106 [facility] Comment on above: Performed By: #### T SH, CMP, LIPID #### [facility] [address] [address] [address] Eve Horvath Potassium [Moles/Vol] 4.1 mmol/L Normal 3.5-5.1 [facility] Comment on above: Performed By: #### T SH, CMP, LIPID #### [facility] [address] [address] [address] Eve Horvath Protein [Mass/Vol] 7.9 g/dL Normal 6.4-8.2 [facility] Comment on above: Performed By: #### T SH, CMP, LIPID #### [facility] [address] [address] [address] Eve Horvath Sodium [Moles/Vol] 136 mmol/L Normal 136-145 [facility] Comment on above: Performed By: #### T SH, CMP, LIPID #### [facility] [address] [address] [address] Eve Horvath Urea nitrogen [Mass/Vol] 13.0 mg/dL Normal 7.0-18.0 [facility] Comment on above: Performed By: #### T SH, CMP, LIPID #### [facility] [address] [address] [address] Eve Horvath Urea nitrogen/Creatinine [Mass ratio] 17.3 mg/mg Normal [facility] Comment on above: Performed By: #### T SH, CMP, LIPID #### [facility] [address] [address] [address] Eve Horvath TSHon 01-07-2022 TSH 1.924 uIU/mL Normal 0.358-3.740 [facility] Comment on above: Performed By: #### T SH, CMP, LIPID #### [facility] [address] [address] [address] Eve Horvath MAMMO CONSULT OUTSIDE FILMSo n 08-17-2021 MAMMO CONSULT OUTSIDE FILMS Patient Name: CHIN MILIAN STUDY: MAMMO CONSULT OUTSIDE FILMS; 08/17/2021 2:46 pm ACCESSION NUMBER(S): [id number] ORDERING CLINICIAN: SAMIR ALVAREZ INDICATION: Recommendation for [...] Follow-up. Electronically signed by: JOSE BURGOS MD [facility] MR breast BI wo/w con CADon 08-10-2021 MR breast BI wo/w con CAD [facility] [place] [id number] MRI Report Signed Patient: Chin Milian MR#: [id number] : 1965 Acct:[id number] Age/Sex: 55 / F ADM Date: 08/09/21 Loc: Room: Type: [facility] Attending Dr: Samir Alvarez MD Ordering Provider: Samir Alvarez MD Date of Service: 08/09/21 MR/MR breast BI wo/w con CAD: ABNORMAL MAMMGRA Copies to: Samir Alvarez MD BILATERAL BREAST MRI WITHOUT AND WITH INTRAVENOUS CONTRAST CLINICAL HISTORY: Dense breast tissue. History of breast cancer in the patient's mother and sister. COMPARISON: Diagnostic mammogram from [facility] 05/30/2021. TECHNIQUE: Multisequence, multiplanar images of the breasts were performed before and after the use of IV contrast All imaged data was reviewed using the Clearwave system. The postcontrast images were subtracted and [...] By: 08/10/21 1130 Dictated By: Carlos Weaver Jr, DO 08/10/21 0942 Signed By: 08/10/21 1131 [facility] MG MAMM DIAGNOSTIC 3D HANS CA Don 05-30-2021 MG MAMM DIAGNOSTIC 3D HANS CAD Patient: CHIN MILIAN Exam Date: 05/30/2021 : 1965 Gender:F Ordering : DR SAMIR ALVAREZ . Admission #: [id number] Family : Order #: [id number] CLICK HERE TO VIEW EXAM CORRECTION: deleted [...] cervical cancer at age 52. LOCATION: [facility] BREAST COMPOSITION: Extremely dense, which lowers the [...] Irving MD on 05/31/2021 at 08:42 Normal [facility] Encounters Encounter Date Encounter Type Care Provider Facility Start: 12-30-2023 End: 12-30-2023 ambulatory Blaine KAPLAN Facility:[facility] Start: 12-30-2023 End: 12-30-2023 Patient encounter procedure Blaine KAPLAN [facility] [place] Start: 11-24-2023 ambulatory Blaine KAPLAN Facility:[facility] Start: 04-10-[address] SAMIR ALVAREZ Facility : Start: 01-09-2022 Encounter for genera l adult medical examination without abnormal findings DR SAMIR ALVAREZ [facility] Start: 01-08-2022 End: 01-08-[address] SAMIR [...] encounter procedure MD Samir Alvarez Work Phone: [facility] [place] Start: 07-10-2021 End: 07-10-2021 Patient encounter procedure MD Samir Alvarez Work Phone: [facility] [place] Start: 05-30-2021 End: 05-31-[address] SAMIR ALVAREZ Facility:[facility] Procedures Date Procedure Procedure Detail Performing Clinician Cone biopsy Blaine KAPLAN Insertion of tympani c ventilation tube in tympanic membrane Blaine KAPLAN Repair of left inguinal hernia Blaine KAPLAN Repair of middle ear Blaine KAPLAN Plan of Treatment Date Care Activity Detail Author Start: 08-09-2021 MRI of bilateral jose asts with contrast MR breast BI wo/w con [facility] Start: 07-10-2021 MRI of bilateral jose asts with contrast MR breast BI wo/w con [facility] Immunizations Immunization Date Immunization Notes Care Provider Fa cility 03-05-2021 SARS-CoV-2 (COVID-19 ) mRNA-1273 vaccine Blaine KAPLAN [facility] [place] Comment on above: Result Comment: 2023: [id number] 07-19-2020 SARS-CoV-2 (COVID-19 ) Ad26 vaccine, recombinant Blaine KAPLAN [facility] Comment on above: Result Comment: 2023: [id number] Payers Date Payer Category Payer Unknown [id number] 2.16.84 [id number] 1965 Unknown [id number] 2.16.84 [id number] 1965 Unknown [id number] 2.16.84 [id number] 1965 Unknown [id number] 2.16.84 [id number] 1965 Unknown [id number] 2.16.84 [id number] 1965 Unknown [id number] 2.16.84 [id number] 1965 Unknown [id number] 2.16.8 [id number] 1957 Self-pay [id number] 1957 Unknown [id number] Social History Date Type Detail Facility Tobacco smoking stat [facility] Unknown if ever smoked [facility] Work Phone: Start: 1965 Sex Assigned At Female [facility] Tobacco smoking status No Smokin g Status Entered [facility] Sex Assigned At Female [facility] Evaluation + Plan note Note Date & Type Note Facility Evaluation + Plan note No data available for this section [facility] Evaluation note Note Date & Type Note Facility Evaluation note No assessment information availa ble [facility] Work Phone: Hospital Discharge instructions Note Date & Type Note Facility Hospital Discharge instructions No data available for this section [facility] Progress note Note Date & Type Note Facility Progress note No data available for this section [facility] Chief Complaint and Reason for Visit Chief Complaint abnormal mamm Chief Complaint abnormal mamm abnormal mamm Advance Directives No Advanced Directives Records Found Advance Directive Response Recorded Date/ Time Advance Directives No June 2:36pm Advance Directive Response Recorded Date/ Time Advance Directives No June 3:36pm Summary Purpose Family History No Family History Records FoundNo Family History Records FoundNo Family History Records Found No data available for this section No Family History Records Found Additional Source Comments Care Teams (unrecognized sec tion and content) Team Status: Inactive Member Role Status Dates Samir Alvarez MD Primary Care Provider, Attending Collin levin Active Team Status: Active Member Role Status Dates Samir Alvarez MD Primary Care Provider Active Goals (unrecognized section and content) Goals may be documented in a n alternate sectionGoals may be documented in an alternate section No data available for this section INFORMATION SOURCE (unrecogn ized section and content) DATE CREATED AUTHOR 08/24/2021 [facility] DATE CREATED AUTHOR AUTHOR'S ORGANIZ ATION 10/27/2021 [facility] DATE CREATED AUTHOR AUTHOR'S ORGANIZ ATION 01/09/2022 [facility] DATE CREATED AUTHOR AUTHOR'S ORGANIZ ATION 01/01/2024 [facility] FOR RECORDS PERTAINING TO PATIENTS WHO ARE [...] BE BASED ON THE PRIMARY CLINICAL RECORDS. [employer] [facility]. provides no warranty or guarantee of the accuracy or completeness of information in this document.
--- NOTE | 2024-04-05 13:25 | XR_ITS ---
The [address] [address] Patient Name: CHIN MILIAN MRN: [id number] date: 1965 Sex: F Assigned Patient Location: ER Current Patient Location: ER Accession/Order Number: [id number] Exam Date: 04/05/2024 13:32 Report Date: 04/05/2024 14:04 At the request of: HARIS MAR Procedure: XR hand RT min 3V PROCEDURE: XR hand RT min 3V HISTORY: fall ; right hand pain COMPARISON: None. FINDINGS: BONES:No acute fracture dislocation. Mild degenerative changes of the interphalangeal joints. Tiny ossification medial to the second distal interphalangeal joint favoring sequela of remote injury. SOFT TISSUES:No visible soft tissue swelling. EFFUSION:None visible. OTHER: Negative. XR/XR hand RT min 3V IMPRESSION: 1. No convincing acute bone abnormality. Electronically authenticated by: MASHA KERR Date: 04/05/2024 14:04
--- NOTE | 2024-04-05 13:25 | CT_ITS ---
The [address] [address] Patient Name: CHIN MILIAN MRN: [id number] date: 1965 Sex: F Assigned Patient Location: ER Current Patient Location: ER Accession/Order Number: [id number] Exam Date: 04/05/2024 13:36 Report Date: 04/05/2024 14:15 At the request of: HARIS MAR Procedure: CT facial bones wo con EXAMINATION: CT facial bones wo con HISTORY: fall ; pain to chin and right side of face COMPARISON: No relevant comparison available. TECHNIQUE: Axial, Coronal, and Sagittal CT images created without IV contrast. Dose reduction techniques were achieved by using automated exposure control and/or adjustment of mA and/or kV according to patient size and/or use of iterative reconstruction technique. FINDINGS: FACIAL BONES: Acute fracture through neck of right mandible lateral displacement of the mandible greater than one full bone width and proximal retraction 1.2 cm. The mandibular condyle appears to remain intact with the glenoid of the temporomandibular joint. Marked degenerative erosion of the left mandibular condyle and loss of the joint space. Nondisplaced fracture extending through anterior mandible at midline. SINUSES: No visible mass, significant fluid or mucosal thickening. NASAL FOSSA: No mass, fracture, or significant septal deviation. SKULL BASE: No mass or bone destruction. ORBITS: No visible mass, hematoma, edema or fracture. SALIVARY GLANDS: No mass. Unremarkable parotid and submandibular glands. OTHER: No lymphadenopathy. Unremarkable nasopharynx, oropharynx, and oral cavity. CT/CT facial bones wo con IMPRESSION: 1. Displaced fracture of right mandibular neck. 2. Nondisplaced fracture anterior mandible at midline. 3. 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 Electronically authenticated by: MASHA KERR Date: 04/05/2024 14:15
--- NOTE | 2024-04-05 13:26 | ED_ITS ---
Documented by User: REGLA Jimenez 04/05/24 15:24 HPI HPI - General Adult General Chief complaint: Fall Stated complaint: FACIAL PAIN/UPPER EXTREMITY INJURY/ FALL Time Seen by Provider: 04/05/24 13:10 Source: patient Mode of arrival: walk-in Limitations: no limitations History of Present Illness HPI narrative: Patient a 58-year-old female who presents to the emergency department for pain in the jaw after a fall yesterday. She states she tripped over her feet and fell forward on asphalt hitting her chin. She denies loss of consciousness. She has no pain to the neck, back or shoulders. She states she fell on her right hand that was outstretched and has bruising to the palm of the hand. She is right-hand dominant. Unknown last tetanus. She sustained a laceration under her chin that is not actively bleeding today. She states she broke one of her teeth and feels as though she can taste some blood in her mouth from that area but has not had any significant bleeding inside the mouth or intraoral laceration. She is ambulating without difficulty. Related Data Home Medications ?Medication ?Instructions ?Recorded ?Confirmed ibuprofen 800 mg tablet (IBU) 800 mg PO TID-QID PRN pain 12/08/23 04/05/24 Previous Rx's ?Medication ?Instructions ?Recorded amoxicillin 875 mg-potassium 1 tab PO Q12H #20 tabs 04/05/24 clavulanate 125 mg tablet hydrocodone 5 mg-acetaminophen 325 1 tab PO Q6H PRN pain 4 days #15 04/05/24 mg tablet tabs mupirocin 2 % topical ointment 1 applic topical BID #15 grams 04/05/24 ondansetron 4 mg disintegrating 4 mg PO Q6H PRN nausea and 04/05/24 tablet vomiting #12 tabs Allergies Allergy/AdvReac Type Severity Reaction Status Date / Time No Known Drug Allergies Allergy Verified 04/05/24 12:46 Opioid HPI Opioid Management Most Recent Opioid Data: Last Pain Scale 9 04/05/24 13:53 04/05/24 Last MAR Pain Assessment 04/05/24 13:53 Review of Systems ROS Constitutional Denies: fever or chills Ears, nose, mouth, and throat Reports: mouth pain; Denies: throat pain or neck pain Cardiovascular Denies: chest pain Respiratory Denies: shortness of breath Gastrointestinal Denies: nausea or vomiting Musculoskeletal Reports: extremity pain; Denies: back pain, neck pain or extremity swelling Integumentary/Breast Denies: rash Neurological Denies: headache, numbness in extremities or weakness in extremities Hematologic/Lymphatic Denies: easy bruising or easy bleeding [facility] Medical History (Updated 04/05/24 @ 15:18 by REGLA Jimenez) Restless leg ?G25.81 - Restless legs syndrome (ICD-10) Dialysis discontinued by patient ?Z91.158 - Patient's noncompliance with renal dialysis for other reason (ICD- 10) Left knee injury ?S89.92XA - Unspecified injury of left lower leg, initial encounter (ICD-10) delivery delivered ?O82 - Encounter for delivery without indication (ICD-10) Hernia ?K46.9 - Unspecified abdominal hernia without obstruction or gangrene (ICD- 10) Cervical cancer ?C53.9 - Malignant neoplasm of cervix uteri, unspecified (ICD-10) Varicose veins of bilateral lower extremities with pain ?I83.813 - Varicose veins of bilateral lower extremities with pain (ICD-10) Renal disease ?N28.9 - Disorder of kidney and ureter, unspecified (ICD-10) Hemolytic uremic syndrome ?D59.30 - Hemolytic-uremic syndrome, unspecified (ICD-10) Surgical History (Updated 12/08/23 @ 10:52 by Tan Rivero) H/O: hysterectomy ?Z90.710 - Acquired absence of both cervix and uterus (ICD-10) Social History Within the past year, how often did you have a drink containing alcohol: 4 or more times a week Within the past year, how many standard drinks containing alcohol did you have on a typical day: 1 or 2 Within the past year, how often did you have six or more drinks on one occasion: never Total score: 0 Score interpretation: Questions 2 and 3 are 0. It can be assumed that the patient's drinking is below the recommended limits. However, please confirm the accuracy of the patient's alcohol intake over the last few months. Smoking status: Heavy tobacco smoker What tobacco products do you use: cigarettes Nicotine containing products detail: 1pk cigarettes per day x40 years Non-prescribed substance use: denies use Little interest or pleasure in doing things: not at all Feeling down, depressed, or hopeless: not at all Exam Narrative Exam Narrative: Gen.: Awake, alert, in no distress Head: Normocephalic, atraumatic ENT: Moist mucous membranes, limited range of motion to open the mouth, no active bleeding noted inside the mouth. 3 cm superficial laceration noted under the jaw/chin. No deep laceration or active bleeding. Diffuse tenderness of the mandible Respiratory: No respiratory distress Extremities: Moves extremities equally, ecchymosis noted to the palm of the right hand just distal to the wrist joint. Ecchymosis noted to the palms of the fingers as well. No swelling, normal movement of the fingers and no bony tenderness of the right wrist. 2+ right radial pulse Psych: Normal mood and affect Neuro: No focal neuro deficit Skin: Warm, dry Constitutional Vital Signs, click to edit/add: Last Vital Signs Pulse 86 04/05/24 15:45 Resp 18 04/05/24 15:45 BP 158/105 H 04/05/24 12:46 Pulse Ox 98 04/05/24 15:45 O2 Del Method Room Air 04/05/24 12:46 Course Vital Signs Vital signs: Vital Signs Pulse Rate 88 04/05/24 12:46 Respiratory Rate 18 04/05/24 12:46 Blood Pressure 158/105 H 04/05/24 12:46 Pulse Oximetry 99 04/05/24 12:46 Oxygen Delivery Method Room Air 04/05/24 12:46 Pulse Rate 86 04/05/24 15:45 Respiratory Rate 18 04/05/24 15:45 Blood Pressure 158/105 H 04/05/24 12:46 Pulse Oximetry 98 04/05/24 15:45 Oxygen Delivery Method Room Air 04/05/24 12:46 Medical Decision Making MDM Narrative Medical decision making narrative: Patient declined Percocet, she did have a tetanus update and was ordered to have bacitracin applied to the area under the chin. X-rays of the right hand are unremarkable per the radiologist and CT of the facial bones shows the patient has a fracture of the anterior midline mandible as well as the mandibular neck. Toradol was ordered for her for pain. I made multiple phone calls to tertiary care facilities to speak with plastic surgery and oral maxillofacial surgery. Patient does not require transfer at this time, however plastic surgery ([facility] 1426pm) is not able to treat the patient's type of fracture and she will need to be referred to oral surgery. I contacted oral maxillofacial surgery office in [place] (1456pm) and received follow-up information for Dr. Lyman who can see the patient at [facility]. Patient was given referral information as well as results of her CT scan. She will be prescribed analgesics, Augmentin, Bactroban for home. Reevaluated by attending physician prior to discharge. Return to the ER if symptoms change or worsen SHARED APC VISIT, PHYSICIAN ATTESTATION: [id number] I performed a substantive part of the MDM during the patient?s E/M visit. I personally evaluated and examined the patient. I personally made or approved the documented management plan and acknowledge its risk of complications. Medical Records Medical records reviewed: Yes I reviewed the patient's medical records Imaging Data CT scan - head: Attestation: I have reviewed the pertinent imaging results. Radiologist's impression: ITS Impressions Facial Bones CT 04/05/24 13:25 IMPRESSION: 1. Displaced fracture of right mandibular neck. 2. Nondisplaced fracture anterior mandible at midline. 3. 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 Electronically authenticated by: MASHA KERR Date: 04/05/2024 14:15 Hand X-Ray 04/05/24 13:25 IMPRESSION: 1. No convincing acute bone abnormality. Electronically authenticated by: MASHA KERR Date: 04/05/2024 14:04 Discharge Plan Discharge Chief Complaint: Fall Clinical Impression: Fall, Mandibular fracture, Chin laceration, Contusion of right hand Patient Disposition: Home, Self-Care Time of Disposition Decision: 15:17 Condition: Good Prescriptions / Home Meds: New hydrocodone-acetaminophen 5-325 mg tablet 1 tab PO Q6H PRN (Reason: pain) 4 Days Qty: 15 0RF Rx Instructions: DX: S02.6 amoxicillin-pot clavulanate 875-125 mg tablet 1 tab PO Q12H Qty: 20 0RF mupirocin 2 % ointment 1 applic topical BID Qty: 15 0RF ondansetron 4 mg tablet,disintegrating 4 mg PO Q6H PRN (Reason: nausea and vomiting) Qty: 12 0RF No Action ibuprofen [IBU] 800 mg tablet 800 mg PO TID-QID PRN (Reason: pain) Print Language: German Instructions: Jaw Fracture in Adults (ED), Soft Diet (ED), Contusion in Adults (ED), Laceration Without Closure (ED) Additional Instructions: Please use soap and water to clean your chin with antibiotic ointment You need to see an oral surgeon at a [facility] for your mandible fractures - please contact Dr. Lyman's office at [facility] for an appointment for follow up - [phone] Referrals: Prasad Moreno MD [Primary Care Provider] - 1 week Discharge Date/Time: 04/05/24 15:45 Documented by User: Jason Rivera MD 04/05/24 16:43 HPI HPI - General Adult General Chief complaint: Fall Stated complaint: FACIAL PAIN/UPPER EXTREMITY INJURY/ FALL Time Seen by Provider: 04/05/24 13:10 Related Data Home Medications ?Medication ?Instructions ?Recorded ?Confirmed ibuprofen 800 mg tablet (IBU) 800 mg PO TID-QID PRN pain 12/08/23 04/05/24 Previous Rx's ?Medication ?Instructions ?Recorded amoxicillin 875 mg-potassium 1 tab PO Q12H #20 tabs 04/05/24 clavulanate 125 mg tablet hydrocodone 5 mg-acetaminophen 325 1 tab PO Q6H PRN pain 4 days #15 04/05/24 mg tablet tabs mupirocin 2 % topical ointment 1 applic topical BID #15 grams 04/05/24 ondansetron 4 mg disintegrating 4 mg PO Q6H PRN nausea and 04/05/24 tablet vomiting #12 tabs Allergies Allergy/AdvReac Type Severity Reaction Status Date / Time No Known Drug Allergies Allergy Verified 04/05/24 12:46 Opioid HPI Opioid Management Most Recent Opioid Data: Last Pain Scale 9 04/05/24 13:53 04/05/24 Last MAR Pain Assessment 04/05/24 13:53 PFSH PFSH Medical History (Updated 04/05/24 @ 15:18 by REGLA Jimenez) Restless leg ?G25.81 - Restless legs syndrome (ICD-10) Dialysis discontinued by patient ?Z91.158 - Patient's noncompliance with renal dialysis for other reason (ICD- 10) Left knee injury ?S89.92XA - Unspecified injury of left lower leg, initial encounter (ICD-10) delivery delivered ?O82 - Encounter for delivery without indication (ICD-10) Hernia ?K46.9 - Unspecified abdominal hernia without obstruction or gangrene (ICD- 10) Cervical cancer ?C53.9 - Malignant neoplasm of cervix uteri, unspecified (ICD-10) Varicose veins of bilateral lower extremities with pain ?I83.813 - Varicose veins of bilateral lower extremities with pain (ICD-10) Renal disease ?N28.9 - Disorder of kidney and ureter, unspecified (ICD-10) Hemolytic uremic syndrome ?D59.30 - Hemolytic-uremic syndrome, unspecified (ICD-10) Surgical History (Updated 12/08/23 @ 10:52 by Tan Rivero) H/O: hysterectomy ?Z90.710 - Acquired absence of both cervix and uterus (ICD-10) Social History Within the past year, how often did you have a drink containing alcohol: 4 or more times a week Within the past year, how many standard drinks containing alcohol did you have on a typical day: 1 or 2 Within the past year, how often did you have six or more drinks on one occasion: never Total score: 0 Score interpretation: Questions 2 and 3 are 0. It can be assumed that the patient's drinking is below the recommended limits. However, please confirm the accuracy of the patient's alcohol intake over the last few months. Smoking status: Heavy tobacco smoker What tobacco products do you use: cigarettes Nicotine containing products detail: 1pk cigarettes per day x40 years Non-prescribed substance use: denies use Little interest or pleasure in doing things: not at all Feeling down, depressed, or hopeless: not at all Exam Constitutional Vital Signs, click to edit/add: Last Vital Signs Pulse 86 04/05/24 15:45 Resp 18 04/05/24 15:45 BP 158/105 H 04/05/24 12:46 Pulse Ox 98 04/05/24 15:45 O2 Del Method Room Air 04/05/24 12:46 Course Vital Signs Vital signs: Vital Signs Pulse Rate 88 04/05/24 12:46 Respiratory Rate 18 04/05/24 12:46 Blood Pressure 158/105 H 04/05/24 12:46 Pulse Oximetry 99 04/05/24 12:46 Oxygen Delivery Method Room Air 04/05/24 12:46 Pulse Rate 86 04/05/24 15:45 Respiratory Rate 18 04/05/24 15:45 Blood Pressure 158/105 H 04/05/24 12:46 Pulse Oximetry 98 04/05/24 15:45 Oxygen Delivery Method Room Air 04/05/24 12:46 Medical Decision Making MDM Narrative Medical decision making narrative: Patient declined Percocet, she did have a tetanus update and was ordered to have bacitracin applied to the area under the chin. X-rays of the right hand are unremarkable per the radiologist and CT of the facial bones shows the patient has a fracture of the anterior midline mandible as well as the mandibular neck. Toradol was ordered for her for pain. I made multiple phone calls to tertiary care facilities to [facility] in [place] to speak with plastic surgery and oral maxillofacial surgery. Patient does not require transfer at this time, however plastic surgery ([facility] 1426pm at [facility]) is not able to treat the patient's type of fracture and she will need to be referred to oral surgery. I contacted oral maxillofacial surgery office in [place] (1456pm) and received follow-up information for Dr. Lyman who can see the patient at [facility]. Patient was given referral information as well as results of her CT scan. She will be prescribed analgesics, Augmentin, Bactroban for home. Reevaluated by attending physician prior to discharge. Return to the ER if symptoms change or worsen. DR RIVERA NOTE: I spent 10 minutes with patient and at discharge going over CAT scan results. Patient received a CD of her CAT scan images along with a copy of the report that we discussed at length. Patient was tearful initially. 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 Patient does not want to be admitted to the hospital nor does she want to be transferred nor does she need to be at this time. was very calm cool collected, patient was not and was admittedly upset which is understandable. I repeated myself several times to make sure the patient understood the diagnosis, treatment plan, and follow-up. Patient is aware to be in a soft diet, patient may also need to take in liquids with a straw. Patient understands limited talking. Work note was given off work until she can follow- up with [facility] at [place]. Patient is well aware of the multiple phone calls that were made and attempts to secure a follow-up with [facility] for definitive treatment. I have also spoken to Dr. Correa, plastic surgery from [facility], who is not able to see the patient as well secondary to mandible fr acture. Patient is aware of the 2 part fracture of the mandible. Patient is aware of the probability of needing surgery, possibly needing her jaw wired shut, but I cannot guarantee that until she follows up with [facility]. Patient understands the importance of this. Patient has a laceration to her chin that she is aware of using topical antibiotic ointment 3 times a day, prescription for Bactroban has been given. Patient understands open fracture, this was discussed several times and understands the need for the antibiotic as well. Patient understands if any other difficulty with intractable pain, nausea, vomiting or any other acute concerns return back to the ER. Patient was also sent home with a prescription for Zofran. Patient is clear on the diagnosis, discharge plan, treatment plan and the need to follow-up at [facility] with [facility]. No questions at discharge Multiple phone calls that were made, greater than 5, greater than 35 to 45 minutes spent on multiple phone calls to consultants, transfer centers, and trying to obtain follow-up. Critical care time 32 minutes exclusive from separate billable procedures that were performed. The following was considered in the determination of critical care but not limited to the level of medical decision making, intensive cardiac and/or respiratory monitoring, frequent vital sign monitoring, evaluation of laboratory studies, evaluation of radiographic studies, oxygen monitoring, and constant monitoring and speaking to family at bedside SHARED APC VISIT, PHYSICIAN ATTESTATION: [id number] I performed a substantive part of the MDM during the patient?s E/M visit. I personally evaluated and examined the patient. I personally made or approved the documented management plan and acknowledge its risk of complications. Imaging Data CT scan - head: Radiologist's impression: ITS Impressions Facial Bones CT 04/05/24 13:25 IMPRESSION: 1. Displaced fracture of right mandibular neck. 2. Nondisplaced fracture anterior mandible at midline. 3. 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 Electronically authenticated by: MASHA KERR Date: 04/05/2024 14:15 Hand X-Ray 04/05/24 13:25 IMPRESSION: 1. No convincing acute bone abnormality. Electronically authenticated by: MASHA KERR Date: 04/05/2024 14:04 Discharge Plan Discharge Chief Complaint: Fall Clinical Impression: Fall, Mandibular fracture, Chin laceration, Contusion of right hand Patient Disposition: Home, Self-Care Time of Disposition Decision: 15:17 Condition: Good Prescriptions / Home Meds: New hydrocodone-acetaminophen 5-325 mg tablet 1 tab PO Q6H PRN (Reason: pain) 4 Days Qty: 15 0RF Rx Instructions: DX: S02.6 amoxicillin-pot clavulanate 875-125 mg tablet 1 tab PO Q12H Qty: 20 0RF mupirocin 2 % ointment 1 applic topical BID Qty: 15 0RF ondansetron 4 mg tablet,disintegrating 4 mg PO Q6H PRN (Reason: nausea and vomiting) Qty: 12 0RF No Action ibuprofen [IBU] 800 mg tablet 800 mg PO TID-QID PRN (Reason: pain) Print Language: German Instructions: Jaw Fracture in Adults (ED), Soft Diet (ED), Contusion in Adults (ED), Laceration Without Closure (ED) Additional Instructions: Please use soap and water to clean your chin with antibiotic ointment You need to see an oral surgeon at a larger hospital for your mandible fractures - please contact Dr. Lyman's office at [facility] for an appointment for follow up - [phone] Referrals: Prasad Moreno MD [Primary Care Provider] - 1 week Discharge Date/Time: 04/05/24 15:45
[2024-04-05] MEDS: ADACEL DIPH,PERTUSS(ACELL),TET VAC/PF 0.5 ML ADULT SYRINGE IM (13:31)
[2024-04-05] MEDS: BACITRACIN 0.9 GM PACKET 1 PACKET TOPICAL (13:31)
[2024-04-05] MEDS: KETOROLAC TROMETHAMINE 10 MG TABLET PO (13:53)
[2024-04-05 15:45] VITALS: PULSE 86; O2SAT 98
== END 2024-04-05 15:45 | disposition home or self-care (01) ==
PROVIDERS: Emergency Provider Emergency Medicine; PCP Family Medicine
DX: S02.69XB Fracture of mandible of other specified site, initial encounter for open fracture (principal); Z90.710 Acquired absence of both cervix and uterus; F17.210 Nicotine dependence, cigarettes, uncomplicated; S01.81XA Laceration without foreign body of other part of head, initial encounter; W01.0XXA Fall on same level from slipping, tripping and stumbling without subsequent striking against object, initial encounter; Z23 Encounter for immunization; S60.221A Contusion of right hand, initial encounter
CPT/HCPCS: 70486; 73130; 90471; 90715; 99284

== ENCOUNTER 2024-06-22 13:55 | Outpatient (OUT) | payer BC, SELFPAY ==
--- NOTE | 2024-06-22 13:57 | XR_ITS ---
The [address] [address] Patient Name: CHIN MILIAN MRN: [id number] date: 1965 Sex: F Assigned Patient Location: [facility] Current Patient Location: Accession/Order Number: [id number] Exam Date: 06/22/2024 14:05 Report Date: 06/24/2024 08:44 At the request of: LINO ALBA Procedure: XR foot RT min 3V PROCEDURE: XR foot RT min 3V HISTORY: Left Foot Pain COMPARISON: None. FINDINGS: BONES:Prominent bunion formation. No fracture, dislocation, bone lesion. 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 No calcaneal plantar spur. SOFT TISSUES:No visible soft tissue swelling. EFFUSION:None visible. OTHER: Negative. XR/XR foot RT min 3V IMPRESSION: 1. Bunion formation and mild degenerative joint disease of the first metatarsophalangeal joint. Electronically authenticated by: MASHA KERR Date: 06/24/2024 08:44
--- OUTSIDE RECORDS SUMMARY | 2024-06-22 14:13 | XMS_ITS | CCD ---
Author Organization [facility] Care Team Providers Care Load Out Person Name Role Phone MD Samir Moreno Primary Care Provider [phone] MD Samir Moreno Attending Provider ANTONIO, DR DAWSON Primary Care Unavailable REIDY, DR DAWSON Admitting Unavailable REIDY, DR DAWSON Attending Unavailable ANTONIO, DR DAWSON Consulting Unavailable ANTONIO, DR DAWSON Consulting Unavailable ANTONIO, DR DAWSON Primary Care Unavailable HOY, DR DAWSON Admitting Unavailable HOY, DR DAWSON Attending Unavailable HOY, DR DAWSON Consulting Unavailable REIDY, DR DAWSON Primary Care Unavailable ANTONIO, DR DAWSON Admitting Unavailable ANTONIO, DR DAWSON Attending Unavailable CARLA, DR NIKOLAS [...] Unavailable ANTONIO, DR DAWSON Attending Unavailable Samir Moreno Primary Care Physician [phone] Blaine KAPLAN Attending Unavailable Samir Moreno Referring Unavailable Unavailable Primary Care Provider Unavailabl e PROVIDER, UNKNOWN Admitting Unavailable TIFFANIE MCFARLANE Attending Unavailable TIFFANIE MCFARLANE Attending Unavailable PROVIDER, UNKNOWN Admitting Unavailable Allergies Allergy Classification Reported Allergen(s) Allergy Type Date of Onset Reaction(s) Facility (2 sources) bee venom Drug allergy (disorder) 2 [facility] Repository (2 sources) Bee/Wasp/Ant venom; Translations: [Bee Stings] Allergy to substance Anaphylaxis (disorder) [facility] (1 source) No Known Medication Allergies; Translations: [No Known Medication Allergies] Propensity to adverse reactions (disorder) [facility] Repository NEGATED: Highlighted row has been ruled out! 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] Onset: 12-11-2021 Episodic Other [...] BOTH CERVIX AND UTERUS] Onset: 12-11-2021 Episodic Skull and face fractures (6 sources) Closed fracture of condylar process of right mandible; Translations: [Fracture of condylar process of right mandible, initial encounter for closed fracture] Onset: 05-28-2024 04-14-2024 Episodic Substance-related disorders (1 source) Nicotine dependence, [...] Test Name Value Interpretation Reference Range Facility Progress Noteson 05-28-2024 [employer] Authentication Interface Message Text ORAL SURGERY CLINIC FOLLOW UP VISIT Chief Complaint: Pt presents for follow up. History of present illness: 58 yrs old White female 7 weeks s/p right condyle and symphysis fracture treated conservatively with non-chew diet. Patient reports she has maintained non-chew diet. She admits attempting to eat hamburger 1 week ago, but stopped after 2 bites due to discomfort. She reports generalized pain at right face, but believes it is due to her fractured teeth in the maxillary right. She reports her pain is well controlled with ibuprofen. Review of Systems: no change Physical findings: STEPHANIE 40mm CN V and VII equal and intact Stable and reproducible occlusion No bony stepoff at symphysis No TTP on palpation of right Condyle Fractured tooth #2, 3 (self-reported due to accident) Assessment / Diagnosis: Closed fracture of right condylar process of mandible, initial encounter ([facility]) (Primary Diagnosis) [[id number]] Closed fracture of symphysis of mandible, initial encounter ([facility]) [[id number]] Normal postoperative course. Healing as expected. Patient is a 58 yrs old White female 7 weeks s/p right condyle and symphysis fracture treated conservatively with non-chew diet. She is healing appropriately in the postoperative period with improvements in range of motion as well as with decreasing pain to area. Occlusion is stable. Discussed with patient that she may begin transitioning to soft diet, but to NOT immediately begin hard diet. Will want to see patient again before clearing her for normal diet. Patient understands and will also seek dental treatment to fix fractured posterior right maxillary dentition. Plan: Follow-Up: 1 month Follow up sooner with new or worsening symptoms. Henri Peña DDS Normal [facility] [employer] Sales Manager Authentication Interface Message Text Normal [facility] Progress Noteson 04-19-2024 [employer] Sales Manager Authentication Interface Message Text Teaching Physician Note: I saw and evaluated the patient. I personally obtained the gaitan and critical portions of the history and physical exam. I reviewed the resident's documentation and discussed the patient with the resident. I agree with the resident's medical decision making as documented in the resident's note. Symphysis fracture is incomplete and definitively non-operative. Right condylar neck fracture is displaced, but such a small fragment as difficult to address surgically. Given that functional ROM is intact, and occlusion is objectively unaffected, recommend non-operative tx with non-chew diet and follow up. Tiffanie Mcfarlane DMD, MD Normal [email or web address] Progress Noteson 04-14-2024 [employer] Sales Manager Authentication Interface Message Text OMFS PATIENT VISIT CHIEF COMPLAINT: Facial fractures and Pain HISTORY OF PRESENT ILLNESS: Patient had ground level fall 04/04, striking chin, resulting in incomplete symphysis and displaced right condylar neck fracture. Was seen at ED 04/05, who recommended OMFS f/up. Patient reports pain on opening, speaking, and eating. PAST MEDICAL HISTORY: None No past medical history on file. There is no problem list on file for this patient. MEDICATIONS: No current outpatient medications on file. No current facility-administered medications for this visit. ALLERGIES: Patient has no allergy information on record. SURGICAL HX: No past surgical history on file. SOCIAL HX: CLINICAL EXAMINATION Extraoral examination: No significant findings, STEPHANIE ~3cm limited by pain. Intraoral examination: Poor dentition. TTP of right mandible. Appropriate occlusion, appropriate overjet and overbite. RADIOGRAPHIC INTERPRETATION: CBCT taken shows medial-anteriorly displaced right condyle fracture. Incomplete symphysis fracture. DIAGNOSIS: Closed fracture of right condylar process of mandible, initial encounter ([facility]) [[id number]] ASSESSMENT: Discussed indication for non-operative treatment given good clinical occlusion. Discussed importance of no chew and limited opening while fracture heals. Discussed alternative options of closed surgical treatment. Discussed possible future of arthritic changes and need for additional treatment. Patient amenable to non-op treatment PLAN: Next Visit: 4 week f/up. Take panoramic. Likely transition to regular diet if fracture healing appropriately. Jose Alejandro Hernandez DMD, MD Normal [facility] [employer] Sales Manager Authentication Interface Message Text Normal [facility] Telephone Encounteron 2023 [employer] Manager Authentication Interface Message Text What is the need: Situation: OS Sheduling Background: Pt calling in regarding 2 jaw fractures. Has referral for OS. ROL provided Pt with fax/email for referral. Recommendation: Please follow up with Pt at Telephone Information: Thanks! Sanjiv Badillo Normal [facility] OCC BLD IMMUNO SCREENon 12-12 OCCULT BLOOD Negative Normal NEGATIVE [facility] Comment on above: Performed By: #### O BSCRN #### [facility] [address] [place] [address] Dr. Eve Horvath T4, T3U, FTI LABCORPon 01-08 Free Thyroxine Index 1.8 Normal 1.2-4.9 [facility] Comment on above: Performed By: #### T HYLC #### [facility] [address] [place] [address] Dr. Eve Horvath T3 Uptake 28 % Normal 24-39 [facility] Comment on above: Performed By: #### T HYLC #### [facility] [address] [place] [address] Dr. Eev Horvath T4 [Mass/Vol] 6.6 ug/dL Normal 4.5-12.0 [facility] Comment on above: Performed By: #### T HYLC #### [facility] [address] [address] [address] Eve Horvath CBC AUTO DIFFon 01-07-2022 BASO # 0.1 103/ul Normal 0.0-0.1 [facility] Comment on above: Performed By: #### C BC #### [facility] [address] [place] [address] Dr. Eve Horvath Basophils/100 WBC (Bld) 0.9 % Normal 0.2-2.0 [facility] Comment on above: Performed By: #### C BC #### [facility] [address] [place] [address] Dr. Eve Horvath EO # 0.1 103/ul Normal 0.0-0.7 [facility] Comment on above: Performed By: #### C BC #### [facility] [address] [place] [address] Dr. Eve Horvath Eosinophils/100 WBC (Bld) 1.2 % Normal 0.9-7.0 [facility] Comment on above: Performed By: #### C BC #### [facility] [address] [place] [address] Dr. Eve Horvath Erythrocyte distribution width (RBC) [Ratio] 13.8 % Normal 11.0-15.0 [facility] Comment on above: Performed By: #### C BC #### [facility] [address] [place] [address] Dr. Eve Horvath Hematocrit (Bld) [Volume fraction] 44.3 % Normal 36.0-48.0 [facility] Comment on above: Performed By: #### C BC #### [facility] [address] [place] [address] Dr. Eve Horvath Hemoglobin (Bld) [Mass/Vol] 14.8 g/dL Normal 12.0-16.0 [facility] Comment on above: Performed By: #### C BC #### [facility] [address] [place] [address] Dr. Eve Horvath IG # 0.03 10e3/ul Normal 0.00-0.03 [facility] Comment on above: Performed By: #### C BC #### [facility] [address] [place] [address] Dr. Eve Horvath IG % 0.4 % Normal 0.0-0.5 [facility] Comment on above: Performed By: #### C BC #### [facility] [address] [place] [address] Dr. Eve Horvath LYMPH # 2.5 103/ul Normal 1.2-3.8 [facility] Comment on above: Performed By: #### C BC #### [facility] [address] [place] [address] Dr. Eve Horvath Lymphocytes/100 WBC (Bld) 32.8 % Normal 20.5-60.0 [facility] Comment on above: Performed By: #### C BC #### [facility] [address] [place] [address] Dr. Eve Horvath MANUAL DIFF REQ NO Normal [facility] Comment on above: Performed By: #### C BC #### [facility] [address] [place] [address] Dr. Eve Horvath MCH (RBC) [Entitic mass] 31.0 pg Normal 26.7-34.0 [facility] Comment on above: Performed By: #### C BC #### [facility] [address] [place] [address] Dr. Eve Horvath MCHC (RBC) [Mass/Vol] 33.4 g/dL Normal 29.9-35.2 [facility] Comment on above: Performed By: #### C BC #### [facility] [address] [place] [address] Dr. Eve Horvath MCV (RBC) [Entitic vol] 92.9 fL Normal 81.0-99.0 [facility] Comment on above: Performed By: #### C BC #### [facility] [address] [place] [address] Dr. Eve Horvath MONO # 0.7 103/ul Normal 0.3-0.8 [facility] Comment on above: Performed By: #### C BC #### [facility] [address] [place] [address] Dr. Eve Horvath Monocytes/100 WBC (Bld) 9.9 % Normal 1.7-12.0 [facility] Comment on above: Performed By: #### C BC #### [facility] [address] [place] [address] Dr. Eve Horvath NEUT # 4.1 103/ul Normal 1.4-6.5 [facility] Comment on above: Performed By: #### C BC #### [facility] [address] [place] [address] Dr. Eve Horvath Neutrophils/100 WBC (Bld) 54.8 % Normal 43.0-75.0 [facility] Comment on above: Performed By: #### C BC #### [facility] [address] [address] [address] Eve Horvath Platelet mean volume (Bld) [Entitic vol] 8.7 fL Critically low 9.5-13.5 [facility] Comment on above: Performed By: #### C BC #### [facility] [address] [address] [address] Eve Horvath PLT 463 103/ul Critically high 150-450 [facility] Comment on above: Performed By: #### C BC #### [facility] [address] [address] [address] Eve Horvath RBC 4.77 106/ul Normal 4.20-5.40 [facility] Comment on above: Performed By: #### C BC #### [facility] [address] [place] [address] Dr. Eve Horvath WBC 7.5 103/ul Normal 4.0-11.0 [facility] Comment on above: Performed By: #### C BC #### [facility] [address] [place] [address] Dr. Eve Horvath GLYCOHEMOGLOBIN A1Con 2021 ADA RECOMMENDATION SEE BELOW Normal [facility] Comment on above: Result Comment: ADA RECOMMENDED LIMIT 4.0 - 6.0 ADA THERAPEUTIC TARGET < 7.0 ACTION SUGGESTED > 7.0 Performed By: #### A 1C #### [facility] [address] [place] [address] Dr. Eve Horvath Glucose [Mass/Vol] 105 mg/dL Normal [facility] Comment on above: Performed By: #### A 1C #### [facility] [address] [address] [address] Eve Horvath HbA1c (Bld) [Mass fraction] 5.3 % Normal 4.5-6.2 [facility] Comment on above: Performed By: #### A 1C #### [facility] [address] [place] [address] Dr. Eve Horvath IRONon 01-07-2022 Iron [Mass/Vol] 105.0 ug/dL Normal 50.0-170.0 [facility] Comment on above: Performed By: #### I VICTORIA #### [facility] [address] [address] [address] Eve Horvath LIPID PROFILEon 01-07-2022 CHOL-HDL RATIO NORM SEE BELOW Normal [facility] Comment on above: Result Comment: 3.3 - 4.4 LOW RISK 4.4 - 7.1 AVERAGE RISK 7.1 - 11.0 MODERATE RISK >11.0 HIGH RISK Performed By: #### T SH, CMP, LIPID #### [facility] [address] [address] [address] Eve Horvath Cholesterol [Mass/Vol] 352 mg/dL Critically high <=200 [facility] Comment on above: Performed By: #### T SH, CMP, LIPID #### [facility] [address] [address] [address] Eve Horvath Cholesterol in HDL [Mass/Vol] 158 mg/dL Critically high 40-60 [facility] Comment on above: Performed By: #### T SH, CMP, LIPID #### [facility] [address] [address] [address] Eve Horvath Cholesterol in LDL [Mass/Vol] 181.2 mg/dL Normal [facility] Comment on above: Performed By: #### T SH, CMP, LIPID #### [facility] [address] [place], [place] [address] Dr. Eve Horvath Cholesterol.total/C holesterol in HDL [Mass ratio] 2.2 {ratio} Normal [facility] Comment on above: Performed By: #### T SH, CMP, LIPID #### [facility] [address] [place], [place] [address] Dr. Eve Horvath HDL NORMAL > or = 60 mg/dl - LO W CARDIOVASCULAR RISK <40 mg/dl - HIGH CARDIOVASCULAR RISK Normal [facility] Comment on above: Performed By: #### T SH, CMP, LIPID #### [facility] [address] [address] [address] Eve Horvath LDL CALC NORMAL SEE BELOW Normal [facility] Comment on above: Result Comment: <100 mg/dl OPTIMAL 100 - 129 mg/dl NEAR OR ABOVE OPTIMAL 130 - 159 mg/dl BORDERLINE HIGH 160 - 189 mg/dl HIGH >190 mg/dl VERY HIGH Performed By: #### T TRACE CMP, LIPID #### [facility] [address] [place] [address] Dr. Eve Horvath Triglyceride [Mass/Vol] 64 mg/dL Normal <=150 [facility] Comment on above: Performed By: #### T TRACE CMP, LIPID #### [facility] [address] [place] [address] Dr. Eve Horvath VLDL CALC 12.8 mg/dL Normal [facility] Comment on above: Performed By: #### T AMARA WOODWARD, LIPID #### [facility] [address] [place] [address] Dr. Eve Horvath PROF 14(COMP METB)on 022 Albumin [Mass/Vol] 4.2 g/dL Normal 3.4-5.0 [facility] Comment on above: Performed By: #### T TRACE CMP, LIPID #### [facility] [address] [place] [address] Dr. Eve Horvath Albumin/Globulin [Mass ratio] 1.1 {ratio} Normal [facility] Comment on above: Performed By: #### T TRACE CMP, LIPID #### [facility] [address] [place] [address] Dr. Eve Horvath ALP [Catalytic activity/Vol] 52 U/L Normal 46-116 [facility] Comment on above: Performed By: #### T TRACE CMP, LIPID #### [facility] [address] [place] [address] Dr. Eve Horvath ALT [Catalytic activity/Vol] 27 U/L Normal 14-59 [facility] Comment on above: Performed By: #### T TRACE CMP, LIPID #### [facility] [address] [place] [address] Dr. Eve Horvath Anion gap [Moles/Vol] 13.5 mmol/L Normal [facility] Comment on above: Performed By: #### T TRACE CMP, LIPID #### [facility] [address] [address] [address] Eve Horvath AST [Catalytic activity/Vol] 21 U/L Normal 15-37 [facility] Comment on above: Performed By: #### T SH, CMP, LIPID #### [facility] [address] [address] [address] Eve Horvath Bilirubin [Mass/Vol] 0.6 mg/dL Normal 0.2-1.0 [facility] Comment on above: Performed By: #### T SH, CMP, LIPID #### [facility] [address] [address] [address] Eve Horvath Calcium [Mass/Vol] 9.7 mg/dL Normal 8.5-10.1 [facility] Comment on above: Performed By: #### T SH, CMP, LIPID #### [facility] [address] [place] [address] Dr. Eve Horvath Chloride [Moles/Vol] 99 mmol/L Normal 98-107 [facility] Comment on above: Performed By: #### T SH, CMP, LIPID #### [facility] [address] [address] [address] Eve Horvath CO2 [Moles/Vol] 27.6 mmol/L Normal 21.0-32.0 [facility] Comment on above: Performed By: #### T SH, CMP, LIPID #### [facility] [address] [place] [address] Dr. Eve Horvath Creatinine [Mass/Vol] 0.75 mg/dL Normal 0.55-1.02 [facility] Comment on above: Performed By: #### T SH, CMP, LIPID #### [facility] [address] [address] [address] Eve Horvath EGFR-AF [place] ISLANDER >60 Normal >=60 [facility] Comment on above: Performed By: #### T SH, CMP, LIPID #### [facility] [address] [place] [address] Dr. Eve Horvath EGFR-NON AF [place]LANDER >60 Normal >=60 [facility] Comment on above: Performed By: #### T SH, CMP, LIPID #### [facility] [address] [address] [address] Eve Horvath Globulin (S) [Mass/Vol] 3.7 g/dL Normal [facility] Comment on above: Performed By: #### T SH, CMP, LIPID #### [facility] [address] [address] [address] Eve Horvath Glucose [Mass/Vol] 106 mg/dL Normal 74-106 [facility] Comment on above: Performed By: #### T SH, CMP, LIPID #### [facility] [address] [address] [address] Eve Horvath Potassium [Moles/Vol] 4.1 mmol/L Normal 3.5-5.1 [facility] Comment on above: Performed By: #### T SH, CMP, LIPID #### [facility] [address] [place] [address] Dr. Eve Horvath Protein [Mass/Vol] 7.9 g/dL Normal 6.4-8.2 [facility] Comment on above: Performed By: #### T SH, CMP, LIPID #### [facility] [address] [address] [address] Eve Horvath Sodium [Moles/Vol] 136 mmol/L Normal 136-145 [facility] Comment on above: Performed By: #### T SH, CMP, LIPID #### [facility] [address] [address] [address] Eve Horvath Urea nitrogen [Mass/Vol] 13.0 mg/dL Normal 7.0-18.0 [facility] Comment on above: Performed By: #### T SH, CMP, LIPID #### [facility] [address] [address] [address] Eve Horvath Urea nitrogen/Creatinine [Mass ratio] 17.3 mg/mg Normal [facility] Comment on above: Performed By: #### T SH, CMP, LIPID #### [facility] [address] [place] [address] Dr. Eve Horvath TSHon 01-07-2022 TSH 1.924 uIU/mL Normal 0.358-3.740 [facility] Comment on above: Performed By: #### T SH, CMP, LIPID #### [facility] [id number] Eve Horvath MAMMO CONSULT OUTSIDE FILMSo n 08-17-2021 MAMMO CONSULT OUTSIDE FILMS Patient Name: CHIN MILIAN STUDY: MAMMO CONSULT OUTSIDE FILMS; 08/17/2021 2:46 pm ACCESSION NUMBER(S): [id number] ORDERING CLINICIAN: SAMIR MORENO INDICATION: Recommendation for second-look ultrasound and biopsy [...] Follow-up. Electronically signed by: JOSE BURGOS MD [facility] [place] breast BI wo/w con CADon 08-10-2021 MR breast BI wo/w con [facility] [address] [id number] MRI Report Signed Patient: Chin Milian MR#: [id number] : 1965 Acct:[id number] Age/Sex: 55 / F ADM Date: 08/09/21 Loc: MR Room: Type: [facility] Attending Dr: Samir Moreno MD Ordering Provider: Samir Moreno MD Date of Service: 08/09/21 MR/MR breast BI wo/w con CAD: ABNORMAL MAMMGRA Copies to: Samir Moreno MD BILATERAL BREAST MRI WITHOUT AND WITH INTRAVENOUS CONTRAST CLINICAL HISTORY: Dense breast tissue. History of breast cancer in the patient's mother and sister. COMPARISON: Diagnostic mammogram from [facility] 05/30/2021. TECHNIQUE: Multisequence, multiplanar images of the breasts were performed before and after the use of IV contrast All imaged data was reviewed using the [employer] system. The postcontrast images were subtracted and [...] Biopsy. Impression dictated by: Carlos Weaver Jr., D.O.08/10/2021 9:42 AM Transcribed By: 08/10/21 1130 Dictated By: Carlos Weaver Jr DO 08/10/21 0942 Signed By: 08/10/21 1131 Normal [facility] MG MAMM DIAGNOSTIC 3D HANS CA Don 05-30-2021 MG MAMM DIAGNOSTIC 3D HANS CAD Patient: CHIN MILIAN Exam Date: 05/30/2021 : 1965 Gender:F Ordering : DR SAMIR MORENO . Admission #: [id number] Family : Order #: [id number] CLICK HERE TO VIEW EXAM CORRECTION: deleted [...] cervical cancer at age 52. LOCATION: [facility] BREAST COMPOSITION: Extremely dense, which lowers the [...] Nikolas Irving MD on 05/31/2021 at 08:42 [facility] Encounters Encounter Date Encounter Type Care Provider Facility Start: 05-28-2024 ambulatory UNKNOWN PROVIDER Facili ty:[facility] Start: 04-14-2024 End: 04-14-2024 Patient encounter procedure Tiffanie Mcfarlane DMD, MD Work Phone: [facility] Comment on above: Closed fracture of r ight condylar process of mandible, initial encounter (HCC) (Primary Dx); Closed fracture of symphysis of mandible, initial encounter (HCC) Start: 04-14-2024 ambulatory TIFFANIE MCFARLANE [facility] Start: 12-30-2023 End: 12-30-2023 ambulatory Blaine KAPLAN Facility:[facility] Start: 12-30-2023 End: 12-30-2023 Patient encounter procedure Blaine KAPLAN [facility] Start: 11-24-2023 ambulatory Blaine KAPLAN Facility:[facility] Start: 04-10-[address] SAMIR MORENO Facility :[facility] Start: 01-09-2022 Encounter for genera l adult medical examination without abnormal findings DR SAMIR MORENO [facility] Start: 01-08-2022 End: 01-08-[address] SAMIR MORENO Facility:[facility] Start: 01-08-2022 End: 01-08-2022 Encounter for general adult medical examination without abnormal findings DR SAMIR MORENO Facility:[facility] Start: 01-07-2022 End: 01-08-[address] SAMIR MORENO Facility:[facility] Start: 12-16-[address] SAMIR MORENO Facility :[facility] Start: 12-09-2021 End: 12-09-[address] SAMIR MORENO Facility:[facility] Start: 08-09-2021 End: 08-09-2021 Patient encounter procedure MD Samir Moreno Work Phone: [facility] [place] Start: 07-10-2021 End: 07-10-2021 Patient encounter procedure MD Samir Moreno Work Phone: [facility] [place] Start: 05-30-2021 End: 05-31-[address] SAMIR MORENO Facility:[facility] Procedures Date Procedure Procedure Detail Performing Clinician Cone biopsy Blaine KAPLAN Insertion of tympani c ventilation tube in tympanic membrane Blaine KAPLAN Repair of left inguinal hernia Blaine KAPLAN Repair of middle ear Blaine KAPLAN Plan of Treatment Date Care Activity Detail Author Start: 04-05-2034 Tetanus vaccination Tetanus (Td or Tdap) Booster [facility] Start: 05-24-2024 End: 05-24-2024 Patient encounter procedure 05/24/2024 9:50 AM EST Office Visit [facility] Oral Surgery [address] [place] [address] Tiffanie Mcfarlane DMD, MD [address] [place] [address] [facility] Start: 01-11-2024 COVID-19 Vaccine ( season) COVID-19 Vaccine () [facility] Start: 01-11-2024 Influenza vaccination Influenza Vaccine (#1) [facility] Start: 08-09-2021 MRI of bilateral breasts with contrast MR breast BI wo/w con [facility] Start: 07-10-2021 MRI of bilateral breasts with contrast MR breast BI wo/w con [facility] Start: 10-15-2017 Shingles (RZV) Vaccine (1 of 2) Shingles (RZV) Vaccine (1 of 2) [facility] Start: 10-15-2012 Lipid panel Cholesterol [facility] Start: 10-15-2012 Screening for malignant neoplasm of colon [facility] Start: 2007 Screening for malignant neoplasm of breast Mammography [facility] Start: 10-15-1988 Screening for malignant neoplasm of cervix Pap Smear [facility] Start: 10-15-1986 Hepatitis A (HAV) Vaccine (optional start 19+ years) Hepatitis A (HAV) Vaccine (optional start 19+ years) [facility] Start: 10-15-1986 Hepatitis B vaccination Hepatitis B (HBV) Vaccine (1 of 3 - 19+ 3-dose series) [facility] Start: 10-15-1985 Hepatitis C screening Hepatitis C Antibody [facility] Start: 10-15-1985 Tdap Booster Tdap Booster [facility] Start: 10-15-1982 HIV screening HIV Test [facility] Start: 1967 Screening for malignant neoplasm of colon Colonoscopy [facility] Immunizations Immunization Date Immunization Notes Care Provider Fa cility 04-05-2024 tetanus toxoid, reduced diphtheria toxoid, and acellular pertussis vaccine, adsorbed Tiffanie Mcfarlane DMD, MD Work Phone: [facility] 03-05-2021 SARS-CoV-2 (COVID-19 ) mRNA-1273 vaccine Blaine KAPLAN [facility] Comment on above: Result Comment: 2023: [id number] 07-19-2020 SARS-CoV-2 (COVID-19 ) Ad26 vaccine, recombinant Blaine KAPLAN [facility] Comment on above: Result Comment: 2023: [id number] Payers Date Payer Category Payer Blue Cross Blue Shield [facility] [id number] 2024 [employer] VTTEB [id number] 1965 Unknown [id number] 1965 Unknown [id number] .[id number] 1967 Unknown [id number] .593 1967 Unknown [id number] .593 1967 Unknown [id number] [id number] .593 1967 Unknown [id number] .593 1967 Unknown [id number] [id number] .727 1965 Unknown [id number] .[id number] 1965 Unknown [id number] .[id number] 1957 Self-pay [id number] 1957 Unknown [id number] Social History Date Type Detail Facility Tobacco smoking status NHIS Unknown if ever smoked [facility] Work Phone: Start: 1965 Sex Assigned At Female F [facility] Tobacco smoking status No Smoking Status Entered [facility] Sex Assigned At Female [facility] Tobacco smoking status NHIS Tobacco smoking consumption unknown [facility] Start: 1965 Sex assigned at [facility] Start: 04-05-2024 Sex Female (finding) [facility] History of Present illness Narrative 04-19-2024 Tiffanie Mcfarlane DMD, MD - 04/19/2024 11:41 AM Jose Alejandro Bunch DMD, MD - 04/14/2024 2:25 PM Evette Eaton - 04/14/2024 1:15 PM EST Note Date & Type Note Facility 04-19-2024 History of Presen t illness Narrative Teaching Physician Note: I saw and evaluated the patient. I personally obtained the gaitan and critical portions of the history and physical exam. I reviewed the resident's documentation and discussed the patient with the resident. I agree with the resident's medical decision making as documented in the resident's note. Symphysis fracture is incomplete and definitively non-operative. Right condylar neck fracture is displaced, but such a small fragment as difficult to address surgically. Given that functional ROM is intact, and occlusion is objectively unaffected, recommend non-operative tx with non-chew diet and follow up. Tiffanie Mcfarlane DMD, MD [facility] PATIENT VISIT CHIEF COMPLAINT: Facial fractures and Pain HISTORY OF PRESENT ILLNESS: Patient had ground level fall 04/04, striking chin, resulting in incomplete symphysis and displaced right condylar neck fracture. Was seen at ED 04/05, who recommended OMFS f/up. Patient reports pain on opening, speaking, and eating. PAST MEDICAL HISTORY: None No past medical history on file. There is no problem list on file for this patient. MEDICATIONS: No current outpatient medications on file. No current facility-administered medications for this visit. ALLERGIES: Patient has no allergy information on record. SURGICAL HX: No past surgical history on file. SOCIAL HX: CLINICAL EXAMINATION Extraoral examination: No significant findings, STEPHANIE ~3cm limited by pain. Intraoral examination: Poor dentition. TTP of right mandible. Appropriate occlusion, appropriate overjet and overbite. RADIOGRAPHIC INTERPRETATION: CBCT taken shows medial-anteriorly displaced right condyle fracture. Incomplete symphysis fracture. DIAGNOSIS: Closed fracture of right condylar process of mandible, initial encounter ([facility]) [[id number]] ASSESSMENT: Discussed indication for non-operative treatment given good clinical occlusion. Discussed importance of no chew and limited opening while fracture heals. Discussed alternative options of closed surgical treatment. Discussed possible future of arthritic changes and need for additional treatment. Patient amenable to non-op treatment PLAN: Next Visit: 4 week f/up. Take panoramic. Likely transition to regular diet if fracture healing appropriately. Jose Alejandro Hernandez DMD, MD Images from the original note were not included. documented in this encounter [facility] History of Present illness Narrative 04-14-2024 Jose Alejandro Hernandez DMD, MD - 04/14/2024 2:25 PM ESTEvette Singh - 04/14/2024 1:15 PM EST Note Date & Type Note Facility 04-14-2024 History of Presen t illness Narrative [facility] PATIENT VISIT CHIEF COMPLAINT: Facial fractures and Pain HISTORY OF PRESENT ILLNESS: Patient had ground level fall 04/04, striking chin, resulting in incomplete symphysis and displaced right condylar neck fracture. Was seen at ED 04/05, who recommended OMFS f/up. Patient reports pain on opening, speaking, and eating. PAST MEDICAL HISTORY: None No past medical history on file. There is no problem list on file for this patient. MEDICATIONS: No current outpatient medications on file. No current facility-administered medications for this visit. ALLERGIES: Patient has no allergy information on record. SURGICAL HX: No past surgical history on file. SOCIAL HX: CLINICAL EXAMINATION Extraoral examination: No significant findings, STEPHANIE ~3cm limited by pain. Intraoral examination: Poor dentition. TTP of right mandible. Appropriate occlusion, appropriate overjet and overbite. RADIOGRAPHIC INTERPRETATION: CBCT taken shows medial-anteriorly displaced right condyle fracture. Incomplete symphysis fracture. DIAGNOSIS: Closed fracture of right condylar process of mandible, initial encounter ([facility]) [[id number]] ASSESSMENT: Discussed indication for non-operative treatment given good clinical occlusion. Discussed importance of no chew and limited opening while fracture heals. Discussed alternative options of closed surgical treatment. Discussed possible future of arthritic changes and need for additional treatment. Patient amenable to non-op treatment PLAN: Next Visit: 4 week f/up. Take panoramic. Likely transition to regular diet if fracture healing appropriately. Jose Alejandro Hernandez DMD, MD Images from the original note were not included. documented in this encounter [facility] Evaluation + Plan note Note Date & Type Note Facility Evaluation + Plan note No data available for this section [facility] Evaluation note Note Date & Type Note Facility Evaluation note No assessment information availa [facility] Work Phone: Evaluation note Note Date & Type Note Facility Evaluation note Diagnosis Closed fracture of right condylar process of mandible, initial encounter (HCC)- Primary Closed fracture of symphysis of mandible, initial encounter (HCC) documented in this encounter [facility] Evaluation note Note Date & Type Note Facility Evaluation note Diagnosis Closed fracture of right condylar process of mandible, initial encounter (HCC)- Primary Closed fracture of symphysis of mandible, initial encounter (HCC) documented in this encounter [facility] Hospital Discharge instructions Note Date & Type Note Facility Hospital Discharge instructions No data available for this section [facility] Progress note Note Date & Type Note Facility Progress note No data available for this section [facility] Chief Complaint and Reason for Visit [...] for this section No Family History Records FoundNo Family History Records Found Additional Source Comments Care Teams (unrecognized sec tion and content) Team Status: Inactive Member Role Status Dates Samir Moreno MD Primary Care Provider, Attending Pr ollie Active Team Status: Active Member Role Status Dates Samir Moreno MD Primary Care Provider Active Goals (unrecognized section and content) Goals may be documented in a n alternate sectionGoals may be documented in an alternate section No data available for this section INFORMATION SOURCE (unrecogn ized section and content) DATE CREATED AUTHOR 08/24/2021 [facility] DATE CREATED AUTHOR AUTHOR'S ORGANIZ ATION 10/27/2021 [facility] DATE CREATED AUTHOR AUTHOR'S ORGANIZ ATION 01/09/2022 [facility] DATE CREATED AUTHOR AUTHOR'S ORGANIZ ATION 01/01/2024 [facility] DATE CREATED AUTHOR AUTHOR'S ORGANIZ ATION 06/04/2024 [facility] FOR RECORDS PERTAINING TO PATIENTS WHO ARE [...] BE BASED ON THE PRIMARY CLINICAL RECORDS. [facility] [employer] [facility]. provides no warranty or guarantee of the accuracy or completeness of information in this document.
== END 2024-06-22 13:56 | disposition home or self-care (01) ==
LOC: RAD 13:55
PROVIDERS: PCP Family Medicine; Visit Provider Podiatrist Foot & Ankle Surgery
DX: M79.671 Pain in right foot (principal); M21.611 Bunion of right foot
CPT/HCPCS: 73630

== ENCOUNTER 2024-10-19 14:20 | Outpatient (OUT) | payer BC, SELFPAY ==
--- NOTE | 2024-10-19 14:24 | CT_ITS ---
[address] [address] Patient Name: CHIN MILIAN MRN: [id number] date: 1965 Sex: F Assigned Patient Location: [facility] Current Patient Location: RAD Accession/Order Number: [id number] Exam Date: 10/19/2024 15:06 Report Date: 10/19/2024 15:08 At the request of: SAMIR ALVAREZ MD Procedure: CT lung screening low-dose CT CHEST WITHOUT CONTRAST, LOW DOSE SCREENING: CLINICAL DATA: A 59-year old current smoker, COMPARISON: Lung screening CT 05/26/2023 TECHNIQUE: Noncontrast axial CT scan images of the chest were obtained under the low dose screening CT protocol. Coronal and sagittal reconstructed images were also submitted. FINDINGS: Mediastinum : Suboptimal evaluation due to low-dose technique. Thoracic aorta appears normal in caliber. Pulmonary trunk appears nondilated. No pericardial effusion. No lymphadenopathy. The esophagus is grossly unremarkable. Lungs: No focal consolidation, pneumothorax or pleural effusion. Trachea and distal airways appear patent. Diffuse bronchial wall thickening. Emphysema. Biapical scarring. No suspicious noncalcified pulmonary nodule or mass. Upper abdomen: No acute findings. Bony thorax and chest wall: Soft tissues surrounding the chest wall demonstrate no acute findings. Osseous structures demonstrate degenerative change. CT/CT lung screening low-dose IMPRESSION: NO SUSPICIOUS PULMONARY NODULE. LUNG - RADS Version 1.0 Assessment: Category 1, Negative (No nodules and definitely benign nodules). Management: Continue annual lung screening with LDCT in 12 months. Impression dictated by: Carlos Weaver Jr., D.O. 10/19/2024 3:08 PM Dictation Location: [place] [address] Electronically authenticated by: [id number] Y Date: 10/19/2024 15:08
== END 2024-10-19 14:21 | disposition home or self-care (01) ==
LOC: RAD 14:20
PROVIDERS: PCP Family Medicine; Visit Provider Family Medicine
DX: Z00.00 Encounter for general adult medical examination without abnormal findings (principal); Z72.0 Tobacco use; M85.80 Other specified disorders of bone density and structure, unspecified site
CPT/HCPCS: 71271; 77080